=== PATIENT | male | born 1940 | race American Indian/Alaskan Native ===

== ENCOUNTER → 2016-07-11 | Outpatient (CLI) | payer MEDICARE, OTHER | LOC: MW.CHUR 12:59 | PROVIDERS: ATTEND Urology | DX: C61 Malignant neoplasm of prostate (principal); Z85.46 Personal history of malignant neoplasm of prostate | CPT/HCPCS: 36415; 84153 ==

== ENCOUNTER → 2016-07-13 | Outpatient (CLI) | payer MEDICARE, OTHER | LOC: MW.CHUR 08:00 | PROVIDERS: ATTEND Urology | DX: Z85.46 Personal history of malignant neoplasm of prostate (principal) | CPT/HCPCS: G0463 ==

== ENCOUNTER → 2016-08-03 | Outpatient (CLI) | payer MEDICARE, OTHER | LOC: MW.CHUR 09:58 | PROVIDERS: ATTEND Urology | DX: C61 Malignant neoplasm of prostate (principal); R97.8 Other abnormal tumor markers; Z85.46 Personal history of malignant neoplasm of prostate | CPT/HCPCS: 36415; 84153; 96372; G0463; J9217 ==

== ENCOUNTER → 2016-08-12 | Outpatient (CLI) | payer MEDICARE, OTHER ==
--- NOTE | 2016-08-12 14:04 | NM ---
TOTAL-BODY BONE SCAN CLINICAL HISTORY: Prostate cancer TECHNIQUE: The patient was injected with 23.4 mCi of technetium-99m MDP intravenously and returned three hours later for anterior and posterior total-body bone scan. FINDINGS: Numerous small areas of uptake are noted within the lower cervical, thoracic, and lumbar spine. Mult i focal areas of uptake are also noted within the ribs, right aspect of the pelvis, and within the p roximal right femur. The SI joints appear grossly symmetric. Uptake is noted within the kidneys. IMPRESSION: Multiple small uptake within the axial and appendicular skeleton consistent with osseous metastatic disease.
== END ==
LOC: MW.NM 08:54
PROVIDERS: ATTEND Urology
DX: C61 Malignant neoplasm of prostate (principal)
CPT/HCPCS: 78306; A9503

== ENCOUNTER 2020-01-02 11:48 | Inpatient (IN) | payer MEDICARE, OTHER ==
[2020-01-02] MEDS ORDERED: Sodium Chloride 0.9% 10 ML Syringe FLUSH PRN (11:56)
[2020-01-02] MEDS ORDERED: Sodium Chloride 0.9% 2.5 ML Syringe FLUSH PRN ×2 (11:56)
--- NOTE | 2020-01-02 12:45 | EDM.PDOC ---
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 Past medical history: As per history of present illness and as reviewed below otherwise noncontributory. Surgical history: As per history of present illness and as reviewed below otherwise noncontributory. Social history: No reported history of drug or alcohol abuse. Family history: As per history of present illness and as reviewed below otherwise noncontributory. Physical exam: HEENT: Atraumatic, normocephalic, pupils reactive, negative for conjunctival pallor or scleral icterus, mucous membranes moist, throat clear, neck supple, nontender, trachea midline. Lungs: Clear to auscultation, breath sounds equal bilaterally, chest nontender. Heart: S1S2, regular, negative for clicks, rubs, or JVD. Abdomen: Soft, nondistended, nontender. Negative for masses or hepatosplenomegaly. Negative for costovertebral tenderness. Pelvis: Stable nontender. Genitourinary: Deferred. Rectal: Deferred. Extremities: Atraumatic, negative for cords or calf pain. Neurovascular unremarkable. Neuro: Awake, alert, oriented. Cranial nerves II through XII unremarkable. Cerebellum unremarkable. Motor and sensory unremarkable throughout. Exam nonfocal. Diagnostics: [] Therapeutics: [] Impression: [] Plan: Patient will be evaluated for heart failure and COVID. He will be reassessed [] Definitive disposition and diagnosis as appropriate pending reevaluation and review of above. - Related Data Allergies Allergy/AdvReac Type Severity Reaction Status Date / Time No Known Allergies Allergy Verified 01/02/20 18:51 Home Meds: Home Meds Aspirin 81 mg PO ASDIRECTED 01/02/20 [History] Calcium Carbonate [Calcium] 01/02/20 [History] Cholecalciferol (Vitamin D3) [Vitamin D] 5,000 unit PO DAILY 01/02/20 [History] Gabapentin [Neurontin] 600 mg PO BID 01/02/20 [History] Omeprazole 40 mg PO BID 01/02/20 [History] Vitamin E 400 unit PO DAILY 01/02/20 [History] traMADol [Ultram] 50 mg PO Q4HR PRN 01/02/20 [History] Enzalutamide [Xtandi] 160 mg PO DAILY 01/03/20 [History] Fenofibrate 54 mg PO DAILY 01/03/20 [History] Ondansetron [Zofran] 8 mg PO Q8HR PRN 01/03/20 [History] Sertraline HCl 50 mg PO DAILY 01/03/20 [History] guaiFENesin [Mucinex] 600 mg PO BEDTIME PRN 01/03/20 [History] dexAMETHasone [Dexamethasone] 6 mg PO DAILY #5 tab 01/06/20 [Rx] Past Medical History Oncologic (Cancer) History: Reports: Prostate - Past Surgical History Male Surgical History: Reports: Prostatectomy Social & Family History - Tobacco Use Tobacco Use Status *Q: Never Tobacco User - Recreational Drug Use Recreational Drug Use: No ED ROS GENERAL - Review of Systems Review Of Systems: See Below ED EXAM, GENERAL - Physical Exam Exam: See Below Course - Vital Signs Text/Narrative:: One-view portable chest read entered by me there is infiltrates in bilateral lower lobes right greater than left is consistent with positive Covid test. I discussed case with Dr. Portillo at 155 he will accept the patient pending available beds. Last Recorded V/S: Last Vital Signs Temp 36.2 C 01/06/20 18:30 Pulse 55 L 01/06/20 18:30 Resp 18 01/06/20 18:30 BP 140/69 01/06/20 18:30 Pulse Ox 96 01/06/20 18:30 - Orders/Labs/Meds Labs: Laboratory Tests 01/02/20 01/02/20 01/02/20 Range/Units 12:10 12:10 12:10 WBC 6.59 (4.0-11.0) K/uL RBC 3.10 L (4.50-5.90) M/uL Hgb 8.9 L (13.0-17.0) g/dL Hct 29.1 L (38.0-50.0) % MCV 93.9 (80.0-98.0) fL MCH 28.7 (27.0-32.0) pg MCHC 30.6 L (31.0-37.0) g/dL RDW Std Deviation 67.4 H (28.0-62.0) fl RDW Coeff of Oscar 20 H (11.0-15.0) % Plt Count 221 (150-400) K/uL MPV 8.30 (7.40-12.00) fL Add Manual Diff YES Neutrophils % (Manual) 80 (48.0-80.0) % Band Neutrophils % 9 % Lymphocytes % (Manual) 4 L (16.0-40.0) % Monocytes % (Manual) 7 (0.0-15.0) % Nucleated RBC % 0.3 /100WBC Absolute Seg Neuts 5.3 (1.4-5.7) Band Neutrophils # 0.6 Lymphocytes # (Manual) 0.3 L (0.6-2.4) Monocytes # (Manual) 0.5 (0.0-0.8) Nucleated RBCs # 0 K/uL Sodium 137 (136-148) mmol/L Potassium 3.6 (3.5-5.1) mmol/L Chloride 102 (98-107) mmol/L Carbon Dioxide 30.8 (21.0-32.0) mmol/L BUN 13 (7.0-18.0) mg/dL Creatinine 1.1 (0.8-1.3) mg/dL Est Cr Clr Drug Dosing 55.30 mL/min Estimated GFR (MDRD) > 60.0 ml/min Glucose 98 (74-106) mg/dL Calcium 8.6 (8.5-10.1) mg/dL Total Bilirubin 0.6 (0.2-1.0) mg/dL AST 35 (15-37) IU/L ALT 30 (14-63) IU/L Alkaline Phosphatase 69 (46-116) U/L Troponin I < 0.050 (0.000-0.056) ng/mL B-Natriuretic Peptide 206 H (<100) PG/ML Total Protein 6.0 L (6.4-8.2) g/dL Albumin 3.0 L (3.4-5.0) g/dL Globulin 3.0 (2.6-4.0) g/dL Albumin/Globulin Ratio 1.0 (0.9-1.6) SARS-CoV-2 RNA (KP) (NEGATIVE) 01/02/20 Range/Units 12:52 WBC (4.0-11.0) K/uL RBC (4.50-5.90) M/uL Hgb (13.0-17.0) g/dL Hct (38.0-50.0) % MCV (80.0-98.0) fL MCH (27.0-32.0) pg MCHC (31.0-37.0) g/dL RDW Std Deviation (28.0-62.0) fl RDW Coeff of Oscar (11.0-15.0) % Plt Count (150-400) K/uL MPV (7.40-12.00) fL Add Manual Diff Neutrophils % (Manual) (48.0-80.0) % Band Neutrophils % % Lymphocytes % (Manual) (16.0-40.0) % Monocytes % (Manual) (0.0-15.0) % Nucleated RBC % /100WBC Absolute Seg Neuts (1.4-5.7) Band Neutrophils # Lymphocytes # (Manual) (0.6-2.4) Monocytes # (Manual) (0.0-0.8) Nucleated RBCs # K/uL Sodium (136-148) mmol/L Potassium (3.5-5.1) mmol/L Chloride (98-107) mmol/L Carbon Dioxide (21.0-32.0) mmol/L BUN (7.0-18.0) mg/dL Creatinine (0.8-1.3) mg/dL Est Cr Clr Drug Dosing mL/min Estimated GFR (MDRD) ml/min Glucose (74-106) mg/dL Calcium (8.5-10.1) mg/dL Total Bilirubin (0.2-1.0) mg/dL AST (15-37) IU/L ALT (14-63) IU/L Alkaline Phosphatase (46-116) U/L Troponin I (0.000-0.056) ng/mL B-Natriuretic Peptide (<100) PG/ML Total Protein (6.4-8.2) g/dL Albumin (3.4-5.0) g/dL Globulin (2.6-4.0) g/dL Albumin/Globulin Ratio (0.9-1.6) SARS-CoV-2 RNA (KP) POSITIVE H (NEGATIVE) Meds: Medications Discontinued Medications Generic Name Dose Route Start Last Admin Trade Name Freq PRN Reason Stop Dose Admin Acetaminophen 650 mg 01/02/20 16:28 Tylenol PO Q4H PRN Pain (Mild 1-3)/fever Albuterol/Ipratropium 0 gm 01/02/20 23:52 01/06/20 03:54 Combivent Respimat INH 1 puff Q4H PRN Administration Dyspnea Dexamethasone 6 mg 01/02/20 16:30 01/06/20 08:47 Dexamethasone PO 6 mg DAILY IGNACIO Administration Enoxaparin Sodium 40 mg 01/02/20 16:30 01/06/20 18:13 Lovenox SUBCUT 40 mg Q24H IGNACIO Administration Gabapentin 600 mg 01/02/20 22:00 01/06/20 08:48 Neurontin PO 600 mg BID IGNACIO Administration Remdesivir 100 mg/ Sodium 100 mls @ 100 mls/hr 01/03/20 16:30 01/06/20 17:06 Chloride IV 01/06/20 17:30 100 mls/hr Q24H IGNACIO Administration Remdesivir 200 mg/ Sodium 250 mls @ 250 mls/hr 01/02/20 16:25 01/02/20 17:35 Chloride IV 01/02/20 16:26 250 mls/hr ONETIME ONE Administration Influenza Virus Vaccine 1 each 01/03/20 18:00 Pharmacy To Dose - Influenza Vaccine IM 01/03/20 18:01 ONETIME ONE Influenza Virus Vaccine 240 mcg 01/03/20 09:00 Fluzone High-Dose Quad 2020-21 IM 01/03/20 09:01 .ONCE ONE Influenza Virus Vaccine 240 mcg 01/06/20 11:57 01/06/20 13:53 Fluzone High-Dose Quad 2020-21 IM 01/06/20 11:58 240 mcg .ONCE ONE Administration Omeprazole 40 mg 01/03/20 09:00 01/05/20 06:57 Omeprazole PO 40 mg BID IGNACIO Administration Omeprazole 40 mg 01/04/20 17:00 01/06/20 18:13 Omeprazole PO 40 mg BIDAC IGNACIO Administration Ondansetron HCl 4 mg 01/02/20 16:28 Zofran Odt PO Q4H PRN nausea, able to take PO Sertraline HCl 50 mg 01/03/20 21:00 01/05/20 20:11 Zoloft PO 50 mg BEDTIME IGNACIO Administration Sodium Chloride 10 ml 01/02/20 11:56 01/02/20 12:12 Saline Flush FLUSH 10 ml ASDIRECTED PRN Administration Keep Vein Open Sodium Chloride 2.5 ml 01/02/20 11:56 01/02/20 12:13 Saline Flush FLUSH 2.5 ml ASDIRECTED PRN Administration Keep Vein Open Sodium Chloride 2.5 ml 01/02/20 11:56 01/02/20 12:13 Saline Flush FLUSH 2.5 ml ASDIRECTED PRN Administration Keep Vein Open Tramadol HCl 50 mg 01/02/20 21:13 01/05/20 20:59 Ultram PO 50 mg Q6H PRN Administration Pain Departure - Departure Time of Disposition: 13:56 Disposition: Admitted As Inpatient 65 Condition: Good Clinical Impression: COVID-19 - Discharge Information Sepsis Event Note (ED) - Evaluation Sepsis Screening Result: No Definite Risk EKG INTERPRETATION EKG Interpretation Comments: EKG is normal sinus rhythm rate [address]-T changes multiple unifocal PVCs nonspecific conduction delay the T waves are flipped into 3 and aVF read and interpreted by me. This EKG when compared to 1 in January 2019 is markedly changed.
[2020-01-02 12:46] LABS: BLOOD UREA NITROGEN,BUN 13 mg/dL (7.0-18.0); CARBON DIOXIDE,CO2 30.8 mmol/L (21.0-32.0); CHLORIDE,CL 102 mmol/L (98-107); GLUCOSE RANDOM 98 mg/dL (74-106); POTASSIUM,K 3.6 mmol/L (3.5-5.1); SODIUM,NA 137 mmol/L (136-148)
--- NOTE | 2020-01-02 13:25 | CR ---
INDICATION: Dyspnea COMPARISON: None TECHNIQUE: Single-view chest radiograph FINDINGS: TUBES AND LINES: None. HEART AND MEDIASTINUM: Heart size top normal.. LUNGS AND PLEURAL SPACES: Airspace disease diffusely on the right with john consolidation in the right midlung and right base. Similar finding on the left but of lesser severity.No visible pneumothorax. Possible small right effusion. OSSEOUS STRUCTURES: Diffuse osteosclerosis consistent with osseous metastatic disease probably a prostate origin. IMPRESSION: 1. Bilateral airspace disease, right greater than left. This is likely related to pneumonia, including viral pneumonia. 2. Diffuse osteo sclerotic bone disease likely related to diffuse osteosclerotic prostate metastasis. 3. Metastatic disease to the lungs is possible but the pattern is most suggestive of pneumonia. Dictated by Vance Stephens MD @ Jan 02 2020 1:21PM Signed by Dr. Vance Stephens @ Jan 02 2020 1:24PM
[2020-01-02] MEDS ORDERED: Acetaminophen 325 MG Tab PO PRN (16:28)
[2020-01-02] MEDS ORDERED: Ondansetron 4 MG Tab.DIS PO PRN (16:28)
--- NOTE | 2020-01-02 16:36 | PCM.HP.2 ---
H&P History of Present Illness - General Date of Service: 01/02/20 Admit Problem/Dx: Admission Diagnosis/Problem Admission Diagnosis/Problem Hypoxia - History of Present Illness Initial Comments - Free Text/Narative: 79 yo male with pmh of metastatic prostate cancer who was found to be hypoxic during his oncology clinic visit. He was sent to the ED for evaluation. He denies any fevers, chills, diarrhea, headache, nausea, vomiting, or shortness of breath. He does have nonproductive cough. CXR showed bilateral lung opacities. - Related Data Allergies/Adverse Reactions: Allergies Allergy/AdvReac Type Severity Reaction Status Date / Time No Known Allergies Allergy Verified 01/02/20 18:51 Home Medications: Home Meds Aspirin 81 mg PO ASDIRECTED 01/02/20 [History] Calcium Carbonate [Calcium] 01/02/20 [History] Cholecalciferol (Vitamin D3) [Vitamin D] 5,000 unit PO DAILY 01/02/20 [History] Gabapentin [Neurontin] 600 mg PO BID 01/02/20 [History] Omeprazole 40 mg PO BID 01/02/20 [History] Vitamin E 400 unit PO DAILY 01/02/20 [History] traMADol [Ultram] 50 mg PO Q4HR PRN 01/02/20 [History] Enzalutamide [Xtandi] 160 mg PO DAILY 01/03/20 [History] Fenofibrate 54 mg PO DAILY 01/03/20 [History] Ondansetron [Zofran] 8 mg PO Q8HR PRN 01/03/20 [History] Sertraline HCl 50 mg PO DAILY 01/03/20 [History] guaiFENesin [Mucinex] 600 mg PO BEDTIME PRN 01/03/20 [History] Past Medical History Oncologic (Cancer) History: Reports: Prostate - Past Surgical History Male Surgical History: Reports: Prostatectomy Social & Family History - Tobacco Use Smoking Status *Q: Never Smoker - Recreational Drug Use Recreational Drug Use: No H&P Review of Systems - Review of Systems: Review Of Systems: Comprehensive ROS is negative, except as noted in HPI. Exam - Exam Exam: See Below - Vital Signs Vital Signs: Last Vital Signs Temp 36.6 C 01/02/20 12:45 Pulse 63 01/02/20 14:15 Resp 20 01/02/20 12:57 BP 124/61 01/02/20 14:15 Pulse Ox 99 01/02/20 14:15 Weight: 96.615 kg - Exam General: Alert, Oriented HEENT: Mucosa Moist & [place]ck: Supple Lungs: Clear to Auscultation, Normal Respiratory Effort Cardiovascular: Regular Rate, Regular Rhythm GI/Abdominal Exam: Normal Bowel Sounds, Soft, Non-Tender, No Distention Extremities: Non-Tender, No Pedal Edema Skin: Warm, Dry, Intact Neurological: Cranial Nerves Intact. No: Focal Deficit - Patient Data Lab Results Last 24 hrs: Laboratory Results - last 24 hr 01/02/20 01/02/20 01/02/20 Range/Units 12:10 12:10 12:10 WBC 6.59 (4.0-11.0) K/uL RBC 3.10 L (4.50-5.90) M/uL Hgb 8.9 L (13.0-17.0) g/dL Hct 29.1 L (38.0-50.0) % MCV 93.9 (80.0-98.0) fL MCH 28.7 (27.0-32.0) pg MCHC 30.6 L (31.0-37.0) g/dL RDW Std Deviation 67.4 H (28.0-62.0) fl RDW Coeff of Oscar 20 H (11.0-15.0) % Plt Count 221 (150-400) K/uL MPV 8.30 (7.40-12.00) fL Add Manual Diff YES Neutrophils % (Manual) 80 (48.0-80.0) % Band Neutrophils % 9 % Lymphocytes % (Manual) 4 L (16.0-40.0) % Monocytes % (Manual) 7 (0.0-15.0) % Nucleated RBC % 0.3 /100WBC Absolute Seg Neuts 5.3 (1.4-5.7) Band Neutrophils # 0.6 Lymphocytes # (Manual) 0.3 L (0.6-2.4) Monocytes # (Manual) 0.5 (0.0-0.8) Nucleated RBCs # 0 K/uL Sodium 137 (136-148) mmol/L Potassium 3.6 (3.5-5.1) mmol/L Chloride 102 (98-107) mmol/L Carbon Dioxide 30.8 (21.0-32.0) mmol/L BUN 13 (7.0-18.0) mg/dL Creatinine 1.1 (0.8-1.3) mg/dL Est Cr Clr Drug Dosing 55.30 mL/min Estimated GFR (MDRD) > 60.0 ml/min Glucose 98 (74-106) mg/dL Calcium 8.6 (8.5-10.1) mg/dL Total Bilirubin 0.6 (0.2-1.0) mg/dL AST 35 (15-37) IU/L ALT 30 (14-63) IU/L Alkaline Phosphatase 69 (46-116) U/L Troponin I < 0.050 (0.000-0.056) ng/mL B-Natriuretic Peptide 206 H (<100) PG/ML Total Protein 6.0 L (6.4-8.2) g/dL Albumin 3.0 L (3.4-5.0) g/dL Globulin 3.0 (2.6-4.0) g/dL Albumin/Globulin Ratio 1.0 (0.9-1.6) SARS-CoV-2 RNA (KP) (NEGATIVE) 01/02/20 Range/Units 12:52 WBC (4.0-11.0) K/uL RBC (4.50-5.90) M/uL Hgb (13.0-17.0) g/dL Hct (38.0-50.0) % MCV (80.0-98.0) fL MCH (27.0-32.0) pg MCHC (31.0-37.0) g/dL RDW Std Deviation (28.0-62.0) fl RDW Coeff of Oscar (11.0-15.0) % Plt Count (150-400) K/uL MPV (7.40-12.00) fL Add Manual Diff Neutrophils % (Manual) (48.0-80.0) % Band Neutrophils % % Lymphocytes % (Manual) (16.0-40.0) % Monocytes % (Manual) (0.0-15.0) % Nucleated RBC % /100WBC Absolute Seg Neuts (1.4-5.7) Band Neutrophils # Lymphocytes # (Manual) (0.6-2.4) Monocytes # (Manual) (0.0-0.8) Nucleated RBCs # K/uL Sodium (136-148) mmol/L Potassium (3.5-5.1) mmol/L Chloride (98-107) mmol/L Carbon Dioxide (21.0-32.0) mmol/L BUN (7.0-18.0) mg/dL Creatinine (0.8-1.3) mg/dL Est Cr Clr Drug Dosing mL/min Estimated GFR (MDRD) ml/min Glucose (74-106) mg/dL Calcium (8.5-10.1) mg/dL Total Bilirubin (0.2-1.0) mg/dL AST (15-37) IU/L ALT (14-63) IU/L Alkaline Phosphatase (46-116) U/L Troponin I (0.000-0.056) ng/mL B-Natriuretic Peptide (<100) PG/ML Total Protein (6.4-8.2) g/dL Albumin (3.4-5.0) g/dL Globulin (2.6-4.0) g/dL Albumin/Globulin Ratio (0.9-1.6) SARS-CoV-2 RNA (KP) POSITIVE H (NEGATIVE) Result Diagrams: 01/03/20 05:45 01/03/20 05:45 Sepsis Event Note - Evaluation Sepsis Screening Result: No Definite Risk - Focused Exam Vital Signs: Vital Signs Temp Pulse Resp BP Pulse Ox 01/02/20 14:15 63 124/61 99 01/02/20 13:45 58 L 125/57 L 99 01/02/20 12:57 59 L 20 121/55 L 95 01/02/20 12:45 36.6 C 59 L 20 128/62 94 L 01/02/20 12:15 36.6 C 68 21 H 135/66 89 L 01/02/20 11:55 36.6 C 53 L 20 135/68 98 Problem List Initiated/Reviewed/Updated: Yes Orders Last 24hrs: Active Orders 24 hr Category Date Time Status Patient Status [ADT] Routine ADT 01/02/20 14:07 Active Antiembolic Devices [RC] PER UNIT ROUTINE Care 01/02/20 16:29 Ordered EKG Documentation Completion [RC] STAT Care 01/02/20 11:56 Active Oxygen Therapy [RC] PRN Care 01/02/20 16:28 Ordered Up ad Maude [RC] ASDIRECTED Care 01/02/20 16:28 Ordered VTE/DVT Education [RC] PER UNIT ROUTINE Care 01/02/20 16:28 Ordered Vital Signs [RC] Q4H Care 01/02/20 16:28 Ordered [place] [employer] Diet [DIET] Diet 01/02/20 Breakfast Ordered CBC WITH AUTO DIFF [HEME] AM Lab 01/03/20 05:11 Ordered CBC WITH AUTO DIFF [HEME] AM Lab 01/04/20 05:11 Ordered CBC WITH AUTO DIFF [HEME] AM Lab 01/05/20 05:11 Ordered COMPREHENSIVE METABOLIC PN,CMP [CHEM] AM Lab 01/03/20 05:11 Ordered COMPREHENSIVE METABOLIC PN,CMP [CHEM] AM Lab 01/04/20 05:11 Ordered COMPREHENSIVE METABOLIC PN,CMP [CHEM] AM Lab 01/05/20 05:11 Ordered Acetaminophen [TylenoL] Med 01/02/20 16:28 Ordered 650 mg PO Q4H PRN Enoxaparin [Lovenox] Med 01/02/20 16:30 Ordered 40 mg SUBCUT Q24H Ondansetron [Zofran ODT] Med 01/02/20 16:28 Ordered 4 mg PO Q4H PRN Remdesivir (Eua) [Remdesivir (EUA)] 100 mg Med 01/03/20 16:30 Ordered Sodium Chloride 0.9% [Normal Saline] 100 ml IV Q24H Sodium Chloride 0.9% [Saline Flush] Med 01/02/20 11:56 Active 10 ml FLUSH ASDIRECTED PRN Sodium Chloride 0.9% [Saline Flush] Med 01/02/20 11:56 Active 2.5 ml FLUSH ASDIRECTED PRN Sodium Chloride 0.9% [Saline Flush] Med 01/02/20 11:56 Active 2.5 ml FLUSH ASDIRECTED PRN dexAMETHasone Med 01/02/20 16:30 Ordered 6 mg PO DAILY Saline Lock Insert [OM.PC] Stat Oth 01/02/20 11:56 Ordered Sequential Compression Device [OM.PC] Per Unit Routine Oth 01/02/20 16:28 Ordered Resuscitation Status Routine Resus Stat 01/02/20 16:28 Ordered Medication Orders Acetaminophen (Tylenol) 650 mg PO Q4H PRN PRN Reason: Pain (Mild 1-3)/fever Dexamethasone (Dexamethasone) 6 mg PO DAILY IGNACIO Enoxaparin Sodium (Lovenox) 40 mg SUBCUT Q24H IGNACIO Remdesivir 100 mg/ Sodium (Chloride) 100 mls @ 100 mls/hr IV Q24H IGNACIO Ondansetron HCl (Zofran Odt) 4 mg PO Q4H PRN PRN Reason: nausea, able to take PO Sodium Chloride (Saline Flush) 10 ml FLUSH ASDIRECTED PRN PRN Reason: Keep Vein Open Last Admin: 01/02/20 12:12 Dose: 10 ml Documented by: MICHELLE Sodium Chloride (Saline Flush) 2.5 ml FLUSH ASDIRECTED PRN PRN Reason: Keep Vein Open Last Admin: 01/02/20 12:13 Dose: 2.5 ml Documented by: MICHELLE Sodium Chloride (Saline Flush) 2.5 ml FLUSH ASDIRECTED PRN PRN Reason: Keep Vein Open Last Admin: 01/02/20 12:13 Dose: 2.5 ml Documented by: MICHELLE Assessment/Plan Comment:: 79 yo male admitted for Acute hypoxic respiratory failure from COVID-19 COVID-19: requiring 2 liters [place] supplemental oxygen. Patient was given fact sheet on Remdesivir and explained its FDA EUA. The risks and benefits were explained and patient consented to its use. Will start Remdesivir, dexamethasone and prophylactic lovenox.
[2020-01-02] MEDS: Dexamethasone 4 MG Tab PO SCH (17:01)
[2020-01-02] MEDS: Enoxaparin 40 MG/0.4 ML Syringe SUBCUT SCH (17:03)
[2020-01-02] MEDS: Gabapentin 300 MG Cap PO SCH (22:22)
[2020-01-03] MEDS: Albuterol/Ipratropium 4 GM Inhalation Spray INH PRN ×3 (00:41→16:14)
[2020-01-03 06:35] LABS: BLOOD UREA NITROGEN,BUN 16 mg/dL (7.0-18.0); CARBON DIOXIDE,CO2 26.9 mmol/L (21.0-32.0); CHLORIDE,CL 102 mmol/L (98-107); GLUCOSE RANDOM 132 mg/dL (74-106); POTASSIUM,K 4.1 mmol/L (3.5-5.1); SODIUM,NA 138 mmol/L (136-148)
[2020-01-03] MEDS ORDERED: FLU Vacc QV2020-21(65YR UP)/PF 240 MCG/0.7 ML Syringe IM ONE (09:00)
[2020-01-03] MEDS: Dexamethasone 4 MG Tab PO SCH (09:20)
[2020-01-03] MEDS: Gabapentin 300 MG Cap PO SCH ×2 (09:21→20:42)
[2020-01-03] MEDS: Omeprazole 20 MG Cap.CR PO SCH ×2 (09:21→20:41)
[2020-01-03] MEDS: traMADol 50 MG Tab PO PRN (12:50)
--- NOTE | 2020-01-03 13:03 | PCM.PN ---
- General Info Date of Service: 01/03/20 - Review of Systems Systems Review Comment:: feeling better, no shortness of breath, reports cough - Patient Data Vitals - Most Recent: Last Vital Signs Temp 36.3 C 01/03/20 12:46 Pulse 69 01/03/20 12:46 Resp 18 01/03/20 12:46 BP 144/81 H 01/03/20 12:46 Pulse Ox 92 L 01/03/20 12:46 Weight - Most Recent: 96.615 kg I&O - Last 24 Hours: Intake & Output 01/02/20 01/03/20 01/03/20 22:59 06:59 14:59 Intake Total 600 Output Total 550 Balance 50 Lab Results Last 24 Hours: Laboratory Results - last 24 hr 01/02/20 01/02/20 01/02/20 Range/Units 12:10 12:10 12:52 WBC 6.59 (4.0-11.0) K/uL RBC 3.10 L (4.50-5.90) M/uL Hgb 8.9 L (13.0-17.0) g/dL Hct 29.1 L (38.0-50.0) % MCV 93.9 (80.0-98.0) fL MCH 28.7 (27.0-32.0) pg MCHC 30.6 L (31.0-37.0) g/dL RDW Std Deviation 67.4 H (28.0-62.0) fl RDW Coeff of Oscar 20 H (11.0-15.0) % Plt Count 221 (150-400) K/uL MPV 8.30 (7.40-12.00) fL Neut % (Auto) (48.0-80.0) % Lymph % (Auto) (16.0-40.0) % [place] % (Auto) (0.0-15.0) % Eos % (Auto) (0.0-7.0) % Baso % (Auto) (0.0-1.5) % Neut # (Auto) (1.4-5.7) K/uL Lymph # (Auto) (0.6-2.4) K/uL [place] # (Auto) (0.0-0.8) K/uL Eos # (Auto) (0.0-0.7) K/uL Baso # (Auto) (0.0-0.1) K/uL Add Manual Diff YES Neutrophils % (Manual) 80 (48.0-80.0) % Band Neutrophils % 9 % Lymphocytes % (Manual) 4 L (16.0-40.0) % Monocytes % (Manual) 7 (0.0-15.0) % Nucleated RBC % 0.3 /100WBC Absolute Seg Neuts 5.3 (1.4-5.7) Band Neutrophils # 0.6 Lymphocytes # (Manual) 0.3 L (0.6-2.4) Monocytes # (Manual) 0.5 (0.0-0.8) Nucleated RBCs # 0 K/uL Sodium (136-148) mmol/L Potassium (3.5-5.1) mmol/L Chloride (98-107) mmol/L Carbon Dioxide (21.0-32.0) mmol/L BUN (7.0-18.0) mg/dL Creatinine (0.8-1.3) mg/dL Est Cr Clr Drug Dosing mL/min Estimated GFR (MDRD) ml/min Glucose (74-106) mg/dL Calcium (8.5-10.1) mg/dL Total Bilirubin (0.2-1.0) mg/dL AST (15-37) IU/L ALT (14-63) IU/L Alkaline Phosphatase (46-116) U/L B-Natriuretic Peptide 206 H (<100) PG/ML Total Protein (6.4-8.2) g/dL Albumin (3.4-5.0) g/dL Globulin (2.6-4.0) g/dL Albumin/Globulin Ratio (0.9-1.6) SARS-CoV-2 RNA (KP) POSITIVE H (NEGATIVE) 01/03/20 01/03/20 Range/Units 05:45 05:45 WBC 5.83 (4.0-11.0) K/uL RBC 3.21 L (4.50-5.90) M/uL Hgb 9.2 L (13.0-17.0) g/dL Hct 30.2 L (38.0-50.0) % MCV 94.1 (80.0-98.0) fL MCH 28.7 (27.0-32.0) pg MCHC 30.5 L (31.0-37.0) g/dL RDW Std Deviation 67.6 H (28.0-62.0) fl RDW Coeff of Oscar 20 H (11.0-15.0) % Plt Count 238 (150-400) K/uL MPV 8.20 (7.40-12.00) fL Neut % (Auto) 81.6 H (48.0-80.0) % Lymph % (Auto) 9.6 L (16.0-40.0) % [place] % (Auto) 8.6 (0.0-15.0) % Eos % (Auto) 0.2 (0.0-7.0) % Baso % (Auto) 0.0 (0.0-1.5) % Neut # (Auto) 4.8 (1.4-5.7) K/uL Lymph # (Auto) 0.6 (0.6-2.4) K/uL [place] # (Auto) 0.5 (0.0-0.8) K/uL Eos # (Auto) 0.0 (0.0-0.7) K/uL Baso # (Auto) 0.0 (0.0-0.1) K/uL Add Manual Diff Neutrophils % (Manual) (48.0-80.0) % Band Neutrophils % % Lymphocytes % (Manual) (16.0-40.0) % Monocytes % (Manual) (0.0-15.0) % Nucleated RBC % 0.0 /100WBC Absolute Seg Neuts (1.4-5.7) Band Neutrophils # Lymphocytes # (Manual) (0.6-2.4) Monocytes # (Manual) (0.0-0.8) Nucleated RBCs # 0 K/uL Sodium 138 (136-148) mmol/L Potassium 4.1 (3.5-5.1) mmol/L Chloride 102 (98-107) mmol/L Carbon Dioxide 26.9 (21.0-32.0) mmol/L BUN 16 (7.0-18.0) mg/dL Creatinine 1.0 (0.8-1.3) mg/dL Est Cr Clr Drug Dosing 60.83 mL/min Estimated GFR (MDRD) > 60.0 ml/min Glucose 132 H (74-106) mg/dL Calcium 8.1 L (8.5-10.1) mg/dL Total Bilirubin 0.5 (0.2-1.0) mg/dL AST 30 (15-37) IU/L ALT 32 (14-63) IU/L Alkaline Phosphatase 72 (46-116) U/L B-Natriuretic Peptide (<100) PG/ML Total Protein 6.1 L (6.4-8.2) g/dL Albumin 2.9 L (3.4-5.0) g/dL Globulin 3.2 (2.6-4.0) g/dL Albumin/Globulin Ratio 0.9 (0.9-1.6) SARS-CoV-2 RNA (KP) (NEGATIVE) Med Orders - Current: Current Medications Acetaminophen (Tylenol) 650 mg PO Q4H PRN PRN Reason: Pain (Mild 1-3)/fever Albuterol/Ipratropium (Combivent Respimat) 0 gm INH Q4H PRN PRN Reason: Dyspnea Last Admin: 01/03/20 05:24 Dose: 1 puff Documented by: Dexamethasone (Dexamethasone) 6 mg PO DAILY [facility] Last Admin: 01/03/20 09:20 Dose: 6 mg Documented by: Enoxaparin Sodium (Lovenox) 40 mg SUBCUT Q24H [facility] Last Admin: 01/02/20 17:03 Dose: 40 mg Documented by: Gabapentin (Neurontin) 600 mg PO BID [facility] Last Admin: 01/03/20 09:21 Dose: 600 mg Documented by: Remdesivir 100 mg/ Sodium (Chloride) 100 mls @ 100 mls/hr IV Q24H [facility] Omeprazole (Omeprazole) 40 mg PO BID [facility] Last Admin: 01/03/20 09:21 Dose: 40 mg Documented by: Ondansetron HCl (Zofran Odt) 4 mg PO Q4H PRN PRN Reason: nausea, able to take PO Sertraline HCl (Zoloft) 50 mg PO BEDTIME [facility] Sodium Chloride (Saline Flush) 10 ml FLUSH ASDIRECTED PRN PRN Reason: Keep Vein Open Last Admin: 01/02/20 12:12 Dose: 10 ml Documented by: Sodium Chloride (Saline Flush) 2.5 ml FLUSH ASDIRECTED PRN PRN Reason: Keep Vein Open Last Admin: 01/02/20 12:13 Dose: 2.5 ml Documented by: Sodium Chloride (Saline Flush) 2.5 ml FLUSH ASDIRECTED PRN PRN Reason: Keep Vein Open Last Admin: 01/02/20 12:13 Dose: 2.5 ml Documented by: Tramadol HCl (Ultram) 50 mg PO Q6H PRN PRN Reason: Pain Last Admin: 01/03/20 12:50 Dose: 50 mg Documented by: Discontinued Medications Remdesivir 200 mg/ Sodium (Chloride) 250 mls @ 250 mls/hr IV ONETIME ONE Stop: 01/02/20 16:26 Last Admin: 01/02/20 17:35 Dose: 250 mls/hr Documented by: Influenza Virus Vaccine (Pharmacy To Dose - Influenza Vaccine) 1 each IM ONETIME ONE Stop: 01/03/20 18:01 Influenza Virus Vaccine (Fluzone High-Dose Quad 2019-) 240 mcg IM .ONCE ONE Stop: 01/03/20 09:01 - Exam General: Alert, Oriented Neck: Supple Lungs: Clear to Auscultation, Normal Respiratory Effort Cardiovascular: Regular Rate, Regular Rhythm GI/Abdominal Exam: Normal Bowel Sounds, Soft, Non-Tender Extremities: Non-Tender, No Pedal Edema Skin: Warm, Dry, Intact Neurological: No New Focal Deficit Sepsis Event Note - Evaluation Sepsis Screening Result: No Definite Risk - Focused Exam Vital Signs: Vital Signs Temp Pulse Resp BP Pulse Ox 01/03/20 12:46 36.3 C 69 18 144/81 H 92 L 01/03/20 09:22 92 L 01/03/20 09:03 36.2 C 65 20 147/75 H 90 L 01/03/20 03:34 36.4 C 53 L 18 132/68 95 - Problem List Review Problem List Initiated/Reviewed/Updated: Yes - My Orders Last 24 Hours: My Active Orders 01/02/20 16:28 Oxygen Therapy [RC] PRN Up ad Maude [RC] ASDIRECTED VTE/DVT Education [RC] PER UNIT ROUTINE Vital Signs [RC] Q4H Acetaminophen [TylenoL] 650 mg PO Q4H PRN Ondansetron [Zofran ODT] 4 mg PO Q4H PRN Sequential Compression Device [OM.PC] Per Unit Routine Resuscitation Status Routine 01/02/20 16:29 Antiembolic Devices [RC] PER UNIT ROUTINE 01/02/20 16:30 Enoxaparin [Lovenox] 40 mg SUBCUT Q24H dexAMETHasone 6 mg PO DAILY 01/02/20 16:55 Telemetry Monitoring [Cardiac Monitoring] [RC] Q8H 01/02/20 18:22 Influenza Vaccine Charge [RC] .DISCHARGE 01/02/20 21:13 traMADol [Ultram] 50 mg PO Q6H PRN 01/02/20 22:00 Gabapentin [Neurontin] 600 mg PO BID 01/02/20 23:52 Albuterol/Ipratropium [Combivent Respimat] 0 gm INH Q4H PRN 01/02/20 23:53 RT Post Treatment Assessment [RC] Click to Edit RT Pre-Treatment Assessment [RC] Click to Edit 01/03/20 09:00 Omeprazole 40 mg PO BID 01/03/20 16:30 Remdesivir (Eua) [Remdesivir (EUA)] 100 mg Sodium Chloride 0.9% [Normal Saline] 100 ml IV Q24H 01/03/20 21:00 Sertraline [Zoloft] 50 mg PO BEDTIME 01/04/20 05:11 CBC WITH AUTO DIFF [HEME] AM COMPREHENSIVE METABOLIC PN,CMP [CHEM] AM 01/05/20 05:11 CBC WITH AUTO DIFF [HEME] AM COMPREHENSIVE METABOLIC PN,CMP [CHEM] AM - Plan Plan:: 79 yo male admitted for Acute hypoxic respiratory failure from COVID-19 COVID-19: requiring 4 liters [place] supplemental oxygen. continue remdesivir, dexamethasone and prophylactic lovenox.
[2020-01-03] MEDS: Enoxaparin 40 MG/0.4 ML Syringe SUBCUT SCH (16:12)
[2020-01-03] MEDS: REMDESIVIR (EUA) 100 MG in Sodium Chloride 0.9% 100 ML IV SCH (16:31)
[2020-01-03] MEDS: Sertraline 50 MG Tab PO SCH (20:41)
[2020-01-04 06:52] LABS: BLOOD UREA NITROGEN,BUN 16 mg/dL (7.0-18.0); CHLORIDE,CL 105 mmol/L (98-107); GLUCOSE RANDOM 115 mg/dL (74-106); POTASSIUM,K 4.1 mmol/L (3.5-5.1); SODIUM,NA 142 mmol/L (136-148)
[2020-01-04] MEDS: Omeprazole 20 MG Cap.CR PO SCH ×2 (09:05→16:18)
[2020-01-04] MEDS: Gabapentin 300 MG Cap PO SCH ×2 (09:05→20:25)
[2020-01-04] MEDS: Dexamethasone 4 MG Tab PO SCH (09:05)
[2020-01-04] MEDS: Albuterol/Ipratropium 4 GM Inhalation Spray INH PRN (12:09)
--- NOTE | 2020-01-04 15:47 | PCM.PN ---
- General Info Date of Service: 01/04/20 - Review of Systems Systems Review Comment:: feeling better, has productive cough - Patient Data Vitals - Most Recent: Last Vital Signs Temp 36.5 C 01/04/20 12:00 Pulse 72 01/04/20 12:00 Resp 18 01/04/20 12:00 BP 133/68 01/04/20 12:00 Pulse Ox 93 L 01/04/20 12:00 Weight - Most Recent: 96.615 kg I&O - Last 24 Hours: Intake & Output 01/04/20 01/04/20 01/04/20 06:59 14:59 22:59 Intake Total 400 Output Total 200 Balance 200 Lab Results Last 24 Hours: Laboratory Results - last 24 hr 01/04/20 01/04/20 Range/Units 05:40 05:40 WBC 4.06 (4.0-11.0) K/uL RBC 3.12 L (4.50-5.90) M/uL Hgb 9.0 L (13.0-17.0) g/dL Hct 29.2 L (38.0-50.0) % MCV 93.6 (80.0-98.0) fL MCH 28.8 (27.0-32.0) pg MCHC 30.8 L (31.0-37.0) g/dL RDW Std Deviation 66.1 H (28.0-62.0) fl RDW Coeff of Oscar 19 H (11.0-15.0) % Plt Count 247 (150-400) K/uL MPV 8.30 (7.40-12.00) fL Neut % (Auto) 79.0 (48.0-80.0) % Lymph % (Auto) 9.4 L (16.0-40.0) % [place] % (Auto) 11.6 (0.0-15.0) % Eos % (Auto) 0.0 (0.0-7.0) % Baso % (Auto) 0.0 (0.0-1.5) % Neut # (Auto) 3.2 (1.4-5.7) K/uL Lymph # (Auto) 0.4 L (0.6-2.4) K/uL [place] # (Auto) 0.5 (0.0-0.8) K/uL Eos # (Auto) 0.0 (0.0-0.7) K/uL Baso # (Auto) 0.0 (0.0-0.1) K/uL Nucleated RBC % 0.5 /100WBC Nucleated RBCs # 0 K/uL Sodium 142 (136-148) mmol/L Potassium 4.1 (3.5-5.1) mmol/L Chloride 105 (98-107) mmol/L Carbon Dioxide 30.0 (21.0-32.0) mmol/L BUN 16 (7.0-18.0) mg/dL Creatinine 0.9 (0.8-1.3) mg/dL Est Cr Clr Drug Dosing 67.59 mL/min Estimated GFR (MDRD) > 60.0 ml/min Glucose 115 H (74-106) mg/dL Calcium 7.8 L (8.5-10.1) mg/dL Total Bilirubin 0.4 (0.2-1.0) mg/dL AST 37 (15-37) IU/L ALT 36 (14-63) IU/L Alkaline Phosphatase 65 (46-116) U/L Total Protein 5.7 L (6.4-8.2) g/dL Albumin 2.8 L (3.4-5.0) g/dL Globulin 2.9 (2.6-4.0) g/dL Albumin/Globulin Ratio 1.0 (0.9-1.6) Med Orders - Current: Current Medications Acetaminophen (Tylenol) 650 mg PO Q4H PRN PRN Reason: Pain (Mild 1-3)/fever Albuterol/Ipratropium (Combivent Respimat) 0 gm INH Q4H PRN PRN Reason: Dyspnea Last Admin: 01/04/20 12:09 Dose: 1 puff Documented by: Dexamethasone (Dexamethasone) 6 mg PO DAILY [facility] Last Admin: 01/04/20 09:05 Dose: 6 mg Documented by: Enoxaparin Sodium (Lovenox) 40 mg SUBCUT Q24H [facility] Last Admin: 01/03/20 16:12 Dose: 40 mg Documented by: Gabapentin (Neurontin) 600 mg PO BID [facility] Last Admin: 01/04/20 09:05 Dose: 600 mg Documented by: Remdesivir 100 mg/ Sodium (Chloride) 100 mls @ 100 mls/hr IV Q24H [facility] Stop: 01/06/20 17:30 Last Admin: 01/03/20 16:31 Dose: 100 mls/hr Documented by: Omeprazole (Omeprazole) 40 mg PO BIDAC [facility] Ondansetron HCl (Zofran Odt) 4 mg PO Q4H PRN PRN Reason: nausea, able to take PO Sertraline HCl (Zoloft) 50 mg PO BEDTIME [facility] Last Admin: 01/03/20 20:41 Dose: 50 mg Documented by: Sodium Chloride (Saline Flush) 10 ml FLUSH ASDIRECTED PRN PRN Reason: Keep Vein Open Last Admin: 01/02/20 12:12 Dose: 10 ml Documented by: Sodium Chloride (Saline Flush) 2.5 ml FLUSH ASDIRECTED PRN PRN Reason: Keep Vein Open Last Admin: 01/02/20 12:13 Dose: 2.5 ml Documented by: Sodium Chloride (Saline Flush) 2.5 ml FLUSH ASDIRECTED PRN PRN Reason: Keep Vein Open Last Admin: 01/02/20 12:13 Dose: 2.5 ml Documented by: Tramadol HCl (Ultram) 50 mg PO Q6H PRN PRN Reason: Pain Last Admin: 01/03/20 12:50 Dose: 50 mg Documented by: Discontinued Medications Remdesivir 200 mg/ Sodium (Chloride) 250 mls @ 250 mls/hr IV ONETIME ONE Stop: 01/02/20 16:26 Last Admin: 01/02/20 17:35 Dose: 250 mls/hr Documented by: Influenza Virus Vaccine (Pharmacy To Dose - Influenza Vaccine) 1 each IM ONETIME ONE Stop: 01/03/20 18:01 Influenza Virus Vaccine (Fluzone High-Dose Quad 2019-) 240 mcg IM .ONCE ONE Stop: 01/03/20 09:01 Omeprazole (Omeprazole) 40 mg PO BID [facility] Last Admin: 01/04/20 09:05 Dose: 40 mg Documented by: - Exam General: Alert, Oriented Lungs: Clear to Auscultation, Normal Respiratory Effort Cardiovascular: Regular Rate, Regular Rhythm GI/Abdominal Exam: Soft, Non-Tender, No Distention Extremities: Non-Tender, No Pedal Edema Sepsis Event Note - Evaluation Sepsis Screening Result: No Definite Risk - Focused Exam Vital Signs: Vital Signs Temp Pulse Resp BP Pulse Ox Pulse Ox 10/10/20 12:00 36.5 C 72 18 133/68 93 L 01/04/20 09:00 92 L 01/04/20 08:00 36.9 C 65 18 118/60 92 L 01/04/20 04:11 36.1 C 109 H 19 116/65 432 H - Problem List Review Problem List Initiated/Reviewed/Updated: Yes - My Orders Last 24 Hours: My Active Orders 01/03/20 16:30 Remdesivir (Eua) [Remdesivir (EUA)] 100 mg Sodium Chloride 0.9% [Normal Saline] 100 ml IV Q24H 01/03/20 21:00 Sertraline [Zoloft] 50 mg PO BEDTIME 01/04/20 17:00 Omeprazole 40 mg PO BIDAC 01/05/20 05:11 CBC WITH AUTO DIFF [HEME] AM COMPREHENSIVE METABOLIC PN,CMP [CHEM] AM - Plan Plan:: 79 yo male admitted for Acute hypoxic respiratory failure from COVID-19 COVID-19: requiring 1.5 liters [place] supplemental oxygen. continue remdesivir, dexamethasone and prophylactic lovenox. Anticipate discharge home Monday
[2020-01-04] MEDS: REMDESIVIR (EUA) 100 MG in Sodium Chloride 0.9% 100 ML IV SCH (16:17)
[2020-01-04] MEDS: Enoxaparin 40 MG/0.4 ML Syringe SUBCUT SCH (16:17)
[2020-01-04] MEDS: Sertraline 50 MG Tab PO SCH (20:26)
[2020-01-05 06:27] LABS: BLOOD UREA NITROGEN,BUN 17 mg/dL (7.0-18.0); CARBON DIOXIDE,CO2 27.6 mmol/L (21.0-32.0); CHLORIDE,CL 105 mmol/L (98-107); GLUCOSE RANDOM 86 mg/dL (74-106); POTASSIUM,K 3.6 mmol/L (3.5-5.1); SODIUM,NA 141 mmol/L (136-148)
[2020-01-05] MEDS: Omeprazole 20 MG Cap.CR PO SCH ×3 (06:57→16:16)
[2020-01-05] MEDS: Albuterol/Ipratropium 4 GM Inhalation Spray INH PRN ×3 (06:58→20:16)
[2020-01-05] MEDS: Gabapentin 300 MG Cap PO SCH ×2 (08:25→20:11)
[2020-01-05] MEDS: Dexamethasone 4 MG Tab PO SCH (08:25)
--- NOTE | 2020-01-05 12:15 | PCM.PN ---
- General Info Date of Service: 01/05/20 - Review of Systems Systems Review Comment:: reports cough, no shortness of breath - Patient Data Vitals - Most Recent: Last Vital Signs Temp 36.8 C 01/05/20 08:00 Pulse 68 01/05/20 08:00 Resp 19 01/05/20 08:00 BP 132/68 01/05/20 08:00 Pulse Ox 90 L 01/05/20 09:00 Weight - Most Recent: 96.615 kg I&O - Last 24 Hours: Intake & Output 01/04/20 01/05/20 01/05/20 22:59 06:59 14:59 Intake Total 860 300 Output Total 750 350 Balance 110 -50 Lab Results Last 24 Hours: Laboratory Results - last 24 hr 01/05/20 01/05/20 Range/Units 05:50 05:50 WBC 8.16 (4.0-11.0) K/uL RBC 3.26 L (4.50-5.90) M/uL Hgb 9.2 L (13.0-17.0) g/dL Hct 30.4 L (38.0-50.0) % MCV 93.3 (80.0-98.0) fL MCH 28.2 (27.0-32.0) pg MCHC 30.3 L (31.0-37.0) g/dL RDW Std Deviation 66.0 H (28.0-62.0) fl RDW Coeff of Oscar 19 H (11.0-15.0) % Plt Count 278 (150-400) K/uL MPV 8.50 (7.40-12.00) fL Neut % (Auto) 83.3 H (48.0-80.0) % Lymph % (Auto) 7.0 L (16.0-40.0) % [place] % (Auto) 9.6 (0.0-15.0) % Eos % (Auto) 0.0 (0.0-7.0) % Baso % (Auto) 0.1 (0.0-1.5) % Neut # (Auto) 6.8 H (1.4-5.7) K/uL Lymph # (Auto) 0.6 (0.6-2.4) K/uL [place] # (Auto) 0.8 (0.0-0.8) K/uL Eos # (Auto) 0.0 (0.0-0.7) K/uL Baso # (Auto) 0.0 (0.0-0.1) K/uL Nucleated RBC % 0.0 /100WBC Nucleated RBCs # 0 K/uL Sodium 141 (136-148) mmol/L Potassium 3.6 (3.5-5.1) mmol/L Chloride 105 (98-107) mmol/L Carbon Dioxide 27.6 (21.0-32.0) mmol/L BUN 17 (7.0-18.0) mg/dL Creatinine 1.0 (0.8-1.3) mg/dL Est Cr Clr Drug Dosing 60.83 mL/min Estimated GFR (MDRD) > 60.0 ml/min Glucose 86 (74-106) mg/dL Calcium 7.8 L (8.5-10.1) mg/dL Total Bilirubin 0.5 (0.2-1.0) mg/dL AST 26 (15-37) IU/L ALT 30 (14-63) IU/L Alkaline Phosphatase 67 (46-116) U/L Total Protein 5.6 L (6.4-8.2) g/dL Albumin 2.8 L (3.4-5.0) g/dL Globulin 2.8 (2.6-4.0) g/dL Albumin/Globulin Ratio 1.0 (0.9-1.6) Med Orders - Current: Current Medications Acetaminophen (Tylenol) 650 mg PO Q4H PRN PRN Reason: Pain (Mild 1-3)/fever Albuterol/Ipratropium (Combivent Respimat) 0 gm INH Q4H PRN PRN Reason: Dyspnea Last Admin: 01/05/20 06:58 Dose: 1 puff Documented by: Dexamethasone (Dexamethasone) 6 mg PO DAILY [facility] Last Admin: 01/05/20 08:25 Dose: 6 mg Documented by: Enoxaparin Sodium (Lovenox) 40 mg SUBCUT Q24H [facility] Last Admin: 01/04/20 16:17 Dose: 40 mg Documented by: Gabapentin (Neurontin) 600 mg PO BID [facility] Last Admin: 01/05/20 08:25 Dose: 600 mg Documented by: Remdesivir 100 mg/ Sodium (Chloride) 100 mls @ 100 mls/hr IV Q24H [facility] Stop: 01/06/20 17:30 Last Admin: 01/04/20 16:17 Dose: 100 mls/hr Documented by: Omeprazole (Omeprazole) 40 mg PO BIDAC [facility] Last Admin: 01/05/20 07:39 Dose: Not Given Documented by: Ondansetron HCl (Zofran Odt) 4 mg PO Q4H PRN PRN Reason: nausea, able to take PO Sertraline HCl (Zoloft) 50 mg PO BEDTIME [facility] Last Admin: 01/04/20 20:26 Dose: 50 mg Documented by: Sodium Chloride (Saline Flush) 10 ml FLUSH ASDIRECTED PRN PRN Reason: Keep Vein Open Last Admin: 01/02/20 12:12 Dose: 10 ml Documented by: Sodium Chloride (Saline Flush) 2.5 ml FLUSH ASDIRECTED PRN PRN Reason: Keep Vein Open Last Admin: 01/02/20 12:13 Dose: 2.5 ml Documented by: Sodium Chloride (Saline Flush) 2.5 ml FLUSH ASDIRECTED PRN PRN Reason: Keep Vein Open Last Admin: 01/02/20 12:13 Dose: 2.5 ml Documented by: Tramadol HCl (Ultram) 50 mg PO Q6H PRN PRN Reason: Pain Last Admin: 01/03/20 12:50 Dose: 50 mg Documented by: Discontinued Medications Remdesivir 200 mg/ Sodium (Chloride) 250 mls @ 250 mls/hr IV ONETIME ONE Stop: 01/02/20 16:26 Last Admin: 01/02/20 17:35 Dose: 250 mls/hr Documented by: Influenza Virus Vaccine (Pharmacy To Dose - Influenza Vaccine) 1 each IM ONETIME ONE Stop: 01/03/20 18:01 Influenza Virus Vaccine (Fluzone High-Dose Quad 2020-) 240 mcg IM .ONCE ONE Stop: 01/03/20 09:01 Omeprazole (Omeprazole) 40 mg PO BID [facility] Last Admin: 01/05/20 06:57 Dose: 40 mg Documented by: - Exam General: Alert, Oriented Neck: Supple Lungs: Clear to Auscultation, Normal Respiratory Effort Cardiovascular: Regular Rate, Regular Rhythm GI/Abdominal Exam: Soft, Non-Tender, No Distention Extremities: Non-Tender, No Pedal Edema Skin: Warm, Dry, Intact Neurological: No New Focal Deficit Sepsis Event Note - Evaluation Sepsis Screening Result: No Definite Risk - Focused Exam Vital Signs: Vital Signs Temp Pulse Resp BP Pulse Ox Pulse Ox 01/05/20 09:00 90 L 01/05/20 08:00 36.8 C 68 19 132/68 89 L 01/05/20 04:00 36.6 C 64 19 132/72 93 L - Problem List Review Problem List Initiated/Reviewed/Updated: Yes - My Orders Last 24 Hours: My Active Orders 01/04/20 17:00 Omeprazole 40 mg PO BIDAC 01/06/20 05:11 BASIC METABOLIC PANEL,BMP [CHEM] AM CBC WITH AUTO DIFF [HEME] AM - Plan Plan:: 79 yo male admitted for Acute hypoxic respiratory failure from COVID-19 COVID-19: requiring 2 liters [place] supplemental oxygen. continue remdesivir, dexamethasone and prophylactic lovenox. Anticipate discharge home Monday
[2020-01-05] MEDS: REMDESIVIR (EUA) 100 MG in Sodium Chloride 0.9% 100 ML IV SCH (16:10)
[2020-01-05] MEDS: Enoxaparin 40 MG/0.4 ML Syringe SUBCUT SCH (16:16)
[2020-01-05] MEDS: Sertraline 50 MG Tab PO SCH (20:11)
[2020-01-05] MEDS: traMADol 50 MG Tab PO PRN (20:59)
[2020-01-06] MEDS: Albuterol/Ipratropium 4 GM Inhalation Spray INH PRN (03:54)
[2020-01-06 06:29] LABS: BLOOD UREA NITROGEN,BUN 17 mg/dL (7.0-18.0); CHLORIDE,CL 106 mmol/L (98-107); GLUCOSE RANDOM 96 mg/dL (74-106); POTASSIUM,K 3.3 mmol/L (3.5-5.1); SODIUM,NA 141 mmol/L (136-148)
[2020-01-06] MEDS: Omeprazole 20 MG Cap.CR PO SCH ×2 (06:30→18:13)
[2020-01-06] MEDS: Dexamethasone 4 MG Tab PO SCH (08:47)
[2020-01-06] MEDS: Gabapentin 300 MG Cap PO SCH (08:48)
[2020-01-06] MEDS ORDERED: FLU Vacc QV2020-21(65YR UP)/PF 240 MCG/0.7 ML Syringe IM ONE (11:57)
--- NOTE | 2020-01-06 12:44 | PCM.DCSUM1 ---
Discharge Summary - Discharge Data Discharge Date: 01/06/20 Discharge Disposition: Home, Self-Care 01 Condition: Good - Referral to Home Health Primary Care Physician: Alejandra Ornelas MD - Patient Summary/Data Hospital Course: 79 yo male with pmh of metastatic prostate cancer who was found to be hypoxic during his oncology clinic visit. He was sent to the ED for evaluation. He denies any fevers, chills, diarrhea, headache, nausea, vomiting, or shortness of breath. He does have nonproductive cough. CXR showed bilateral lung opacities. He was requiring 2 L NC to maintain sats above 90%. He was treated with Remdesivir for five days and dexamethasone. Patient never reported shortness of breath and felt generally well except for cough. He is wanting to be discharged home today. He was discharged home with five more days of dexamethasone. He was satting 87% on room air so was sent home with supplemental oxygen at 2 L NC. - Patient Instructions Diet: Usual Diet as Tolerated - Discharge Plan Prescriptions/Med Rec: dexAMETHasone [Dexamethasone] 6 mg PO DAILY #5 tab Home Medications: Home Meds Aspirin 81 mg PO ASDIRECTED 01/02/20 [History] Calcium Carbonate [Calcium] 01/02/20 [History] Cholecalciferol (Vitamin D3) [Vitamin D] 5,000 unit PO DAILY 01/02/20 [History] Gabapentin [Neurontin] 600 mg PO BID 01/02/20 [History] Omeprazole 40 mg PO BID 01/02/20 [History] Vitamin E 400 unit PO DAILY 01/02/20 [History] traMADol [Ultram] 50 mg PO Q4HR PRN 01/02/20 [History] Enzalutamide [Xtandi] 160 mg PO DAILY 01/03/20 [History] Fenofibrate 54 mg PO DAILY 01/03/20 [History] Ondansetron [Zofran] 8 mg PO Q8HR PRN 01/03/20 [History] Sertraline HCl 50 mg PO DAILY 01/03/20 [History] guaiFENesin [Mucinex] 600 mg PO BEDTIME PRN 01/03/20 [History] dexAMETHasone [Dexamethasone] 6 mg PO DAILY #5 tab 01/06/20 [Rx] Oxygen Therapy Mode: Nasal Cannula Oxygen Flow Rate (L/min): 2 Forms: ED Department Discharge Referrals: Alejandra Ornelas MD [Primary Care Provider] - 01/13/20 10:45 am - Discharge Summary/Plan Comment DC Time >30 min.: No - Patient Data Vitals - Most Recent: Last Vital Signs Temp 37.1 C 01/06/20 08:42 Pulse 63 01/06/20 08:42 Resp 18 01/06/20 08:42 BP 125/57 L 01/06/20 08:42 Pulse Ox 93 L 01/06/20 03:55 Weight - Most Recent: 96.615 kg I&O - Last 24 hours: Intake & Output 01/05/20 01/06/20 01/06/20 22:59 06:59 14:59 Intake Total 750 750 Output Total 680 400 Balance 70 350 Lab Results - Last 24 hrs: Laboratory Results - last 24 hr 01/06/20 01/06/20 Range/Units 05:40 05:40 WBC 10.62 (4.0-11.0) K/uL RBC 3.30 L (4.50-5.90) M/uL Hgb 9.6 L (13.0-17.0) g/dL Hct 30.8 L (38.0-50.0) % MCV 93.3 (80.0-98.0) fL MCH 29.1 (27.0-32.0) pg MCHC 31.2 (31.0-37.0) g/dL RDW Std Deviation 65.3 H (28.0-62.0) fl RDW Coeff of Oscar 19 H (11.0-15.0) % Plt Count 305 (150-400) K/uL MPV 8.20 (7.40-12.00) fL Neut % (Auto) 86.3 H (48.0-80.0) % Lymph % (Auto) 5.0 L (16.0-40.0) % [place] % (Auto) 8.7 (0.0-15.0) % Eos % (Auto) 0.0 (0.0-7.0) % Baso % (Auto) 0.0 (0.0-1.5) % Neut # (Auto) 9.2 H (1.4-5.7) K/uL Lymph # (Auto) 0.5 L (0.6-2.4) K/uL [place] # (Auto) 0.9 H (0.0-0.8) K/uL Eos # (Auto) 0.0 (0.0-0.7) K/uL Baso # (Auto) 0.0 (0.0-0.1) K/uL Nucleated RBC % 0.0 /100WBC Nucleated RBCs # 0 K/uL Sodium 141 (136-148) mmol/L Potassium 3.3 L (3.5-5.1) mmol/L Chloride 106 (98-107) mmol/L Carbon Dioxide 24.0 (21.0-32.0) mmol/L BUN 17 (7.0-18.0) mg/dL Creatinine 1.0 (0.8-1.3) mg/dL Est Cr Clr Drug Dosing 60.83 mL/min Estimated GFR (MDRD) > 60.0 ml/min Glucose 96 (74-106) mg/dL Calcium 7.7 L (8.5-10.1) mg/dL Total Bilirubin 0.6 (0.2-1.0) mg/dL AST 20 (15-37) IU/L ALT 28 (14-63) IU/L Alkaline Phosphatase 76 (46-116) U/L Total Protein 5.9 L (6.4-8.2) g/dL Albumin 3.0 L (3.4-5.0) g/dL Globulin 2.9 (2.6-4.0) g/dL Albumin/Globulin Ratio 1.0 (0.9-1.6) Med Orders - Current: Current Medications Acetaminophen (Tylenol) 650 mg PO Q4H PRN PRN Reason: Pain (Mild 1-3)/fever Albuterol/Ipratropium (Combivent Respimat) 0 gm INH Q4H PRN PRN Reason: Dyspnea Last Admin: 01/06/20 03:54 Dose: 1 puff Documented by: Dexamethasone (Dexamethasone) 6 mg PO DAILY [facility] Last Admin: 01/06/20 08:47 Dose: 6 mg Documented by: Enoxaparin Sodium (Lovenox) 40 mg SUBCUT Q24H [facility] Last Admin: 01/05/20 16:16 Dose: 40 mg Documented by: Gabapentin (Neurontin) 600 mg PO BID [facility] Last Admin: 01/06/20 08:48 Dose: 600 mg Documented by: Remdesivir 100 mg/ Sodium (Chloride) 100 mls @ 100 mls/hr IV Q24H [facility] Stop: 01/06/20 17:30 Last Admin: 01/05/20 16:10 Dose: 100 mls/hr Documented by: Omeprazole (Omeprazole) 40 mg PO BIDAC [facility] Last Admin: 01/06/20 06:30 Dose: 40 mg Documented by: Ondansetron HCl (Zofran Odt) 4 mg PO Q4H PRN PRN Reason: nausea, able to take PO Sertraline HCl (Zoloft) 50 mg PO BEDTIME [facility] Last Admin: 01/05/20 20:11 Dose: 50 mg Documented by: Sodium Chloride (Saline Flush) 10 ml FLUSH ASDIRECTED PRN PRN Reason: Keep Vein Open Last Admin: 01/02/20 12:12 Dose: 10 ml Documented by: Sodium Chloride (Saline Flush) 2.5 ml FLUSH ASDIRECTED PRN PRN Reason: Keep Vein Open Last Admin: 01/02/20 12:13 Dose: 2.5 ml Documented by: Sodium Chloride (Saline Flush) 2.5 ml FLUSH ASDIRECTED PRN PRN Reason: Keep Vein Open Last Admin: 01/02/20 12:13 Dose: 2.5 ml Documented by: Tramadol HCl (Ultram) 50 mg PO Q6H PRN PRN Reason: Pain Last Admin: 01/05/20 20:59 Dose: 50 mg Documented by: Discontinued Medications Remdesivir 200 mg/ Sodium (Chloride) 250 mls @ 250 mls/hr IV ONETIME ONE Stop: 01/02/20 16:26 Last Admin: 01/02/20 17:35 Dose: 250 mls/hr Documented by: Influenza Virus Vaccine (Pharmacy To Dose - Influenza Vaccine) 1 each IM ONETIME ONE Stop: 01/03/20 18:01 Influenza Virus Vaccine (Fluzone High-Dose Quad 2019-) 240 mcg IM .ONCE ONE Stop: 01/03/20 09:01 Influenza Virus Vaccine (Fluzone High-Dose Quad 2019-) 240 mcg IM .ONCE ONE Stop: 01/06/20 11:58 Omeprazole (Omeprazole) 40 mg PO BID [facility] Last Admin: 01/05/20 06:57 Dose: 40 mg Documented by:
[2020-01-06] MEDS: REMDESIVIR (EUA) 100 MG in Sodium Chloride 0.9% 100 ML IV SCH (17:06)
[2020-01-06] MEDS: Enoxaparin 40 MG/0.4 ML Syringe SUBCUT SCH (18:13)
== END 2020-01-06 18:45 | disposition home or self-care (01) | DRG 177 ==
LOC: MW.ED 11:48 → MW.MS 15:32
PROVIDERS: ADMIT Internal Medicine; ATTEND Internal Medicine
PROC: XW033E5 Introduction of Remdesivir Anti-infective into Peripheral Vein, Percutaneous Approach, New Technology Group 5 (ICD-10-PCS; principal; 2020-01-02)
PROC: 8E0ZXY6 Isolation (ICD-10-PCS; 2020-01-02)
DX: R06.02 Shortness of breath (principal); U07.1 COVID-19; J96.01 Acute respiratory failure with hypoxia; R05 Cough; Z85.46 Personal history of malignant neoplasm of prostate; C61 Malignant neoplasm of prostate; C79.51 Secondary malignant neoplasm of bone; Z79.82 Long term (current) use of aspirin; Z79.899 Other long term (current) drug therapy
CPT/HCPCS: 36415; 71045; 80053; 83880; 84484; 85025; 93005; 99285; U0002; 90662; A9270-GY; G0008; J1650; J7050; J8540

== ENCOUNTER 2020-12-15 16:14 | Observation (INO) | payer MEDICARE, OTHER ==
--- NOTE | 2020-12-15 17:01 | EDM.PDOC ---
ED HPI GENERAL MEDICAL PROBLEM - General Chief Complaint: Respiratory Problem Stated Complaint: BIBI REFFERED Time Seen by Provider: 12/15/20 16:36 Source of Information: Reports: Patient History Limitations: Reports: No Limitations - History of Present Illness INITIAL COMMENTS - FREE TEXT/NARRATIVE: HISTORY AND PHYSICAL: History of present illness: Patient is an 80-year-old male who presents to the emergency room after a referral from [facility]. He was there for routine labs for his cancer care; Dr Jay informed him that he needed a work-up for sepsis and needed to come to the ED. Patient states he feels "fine" and thought he was coming here for a medical screening to get his Botox procedure in [place] in December. Patient denies any fever, chills, headache, change in vision, syncope or near syncope. Denies any chest pain, back pain, shortness of breath or cough. Denies any abdominal pain, nausea, vomiting, diarrhea, constipation or dysuria. Has not noted any blood in urine or stool. Patient has been eating and drinking appropriately. Review of systems: As per history of present illness and below otherwise all systems reviewed and negative. Past medical history: As per history of present illness and as reviewed below otherwise noncontributory. Surgical history: As per history of present illness and as reviewed below otherwise noncontributory. Social history: See social history for further information Family history: As per history of present illness and as reviewed below otherwise noncontributory. Physical exam: General: Well developed and well nourished 80-year-old male. Alert and orientated x 3. Nontoxic in appearance and in no acute distress. Vital signs are stable and have been reviewed by me. Nursing notes were reviewed. HEENT: Atraumatic, normocephalic, pupils equal and reactive bilaterally, negative for conjunctival pallor or scleral icterus, mucous membranes moist, neck supple, nontender, trachea midline. No drooling or trismus noted. No meningeal signs. No hot potato voice noted. Lungs: Clear to auscultation with the exception of some rhonchi noted in the right lower lobe. No wheezes noted. Chest nontender. Normal work of breathing, no accessory muscles used. Heart: S1S2, regular rate and rhythm without overt murmur, gallops, or rubs. No JVD. No peripheral edema Abdomen: Soft, nondistended, nontender. Normoactive bowel sounds. Negative for masses or costovertebral tenderness. Skin: Intact, warm, dry. No lesions or rashes noted. Hematologic: No petechiae or purpra. Mucosa appropriate color and normal nail bed color and refill. Extremities: Atraumatic, moves all extremities per self without difficulty or deficits, negative for cords or calf pain. Neurovascular unremarkable. Neuro: Awake, alert, oriented. Cranial nerves II through XII unremarkable. Cerebellum unremarkable. Motor and sensory unremarkable throughout. Exam nonfocal. Psychiatric: Mood and affect are appropriate. Normal thought process. Answering questions appropriately. Please note that the patient was seen and evaluated during the 2019 SARS-CoV-2 novel coronavirus pandemic period. Community viral transmission is ongoing at time of this encounter and the emergency department is operating under pandemic response procedures. Medical Decision Making: Patient is an 80-year-old male who states he has no current complaints or conc erns but was sent here to the emergency room for elevated WBC. Patient's physical exam is unremarkable with the exception of some rhonchi in the right lower lobe. He is agreeable to repeat lab work and chest x-ray. He states he did have a chest x-ray done earlier today although I do not have results of this are able to view it on our PACS system. Patient's WBC at [place] this morning was 27, it is now 30. Lactate is normal. Chest x-ray shows focal pulmonary opacity in the peripheral right lung base. Infectious infiltrate is not excluded. Stable mild enlargement of the cardiac silhouette. No sizable pleural effusion. No pneumothorax. Diffuse osseous sclerosis, similar to prior. Blood cultures are pending. I will hang IV vancomycin. Dr. Rodríguez was consulted on this patient. Patient is otherwise stable with out tachycardia, chest pain, cough or shortness of breath. Blood pressure is within normal limits and he is afebrile. Will admit for observation for IV antibiotics and continued monitoring. Patient and his were reviewed of all findings and are agreeable to staying. Diagnostics: CBC, CMP, Lactate, BC x 2, Chest x-ray, COVID, [employer]: Vancomycin 1gm Impression: RLL pneumonia Definitive disposition and diagnosis as appropriate pending reevaluation and review of above. - Related Data Allergies Allergy/AdvReac Type Severity Reaction Status Date / Time No Known Allergies Allergy Verified 12/15/20 16:36 Home Meds: Home Meds Aspirin 81 mg PO ASDIRECTED 01/02/20 [History] Calcium Carbonate [Calcium] 01/02/20 [History] Cholecalciferol (Vitamin D3) [Vitamin D] 5,000 unit PO DAILY 01/02/20 [History] Gabapentin [Neurontin] 600 mg PO BID 01/02/20 [History] Omeprazole 40 mg PO BID 01/02/20 [History] Vitamin E 400 unit PO DAILY 01/02/20 [History] traMADol [Ultram] 50 mg PO Q4HR PRN 01/02/20 [History] Enzalutamide [Xtandi] 160 mg PO DAILY 01/03/20 [History] Fenofibrate 54 mg PO DAILY 01/03/20 [History] Ondansetron [Zofran] 8 mg PO Q8HR PRN 01/03/20 [History] Sertraline HCl 50 mg PO DAILY 01/03/20 [History] guaiFENesin [Mucinex] 600 mg PO BEDTIME PRN 01/03/20 [History] dexAMETHasone [Dexamethasone] 6 mg PO DAILY #5 tab 01/06/20 [Rx] Past Medical History Oncologic (Cancer) History: Reports: Prostate - Infectious Disease History Infectious Disease History: Reports: Chicken Pox, Shingles - Past Surgical History Male Surgical History: Reports: Prostatectomy Social & Family History - Caffeine Use Caffeine Use: Reports: Coffee ED ROS GENERAL - Review of Systems Review Of Systems: Comprehensive ROS is negative, except as noted in HPI. ED EXAM, GENERAL - Physical Exam Exam: See Below (See dictation) Course - Vital Signs Last Recorded V/S: Last Vital Signs Temp 98.1 F 12/15/20 18:34 Pulse 84 12/15/20 18:34 Resp 18 12/15/20 18:34 BP 140/82 12/15/20 18:34 Pulse Ox 98 12/15/20 18:34 - Orders/Labs/Meds Orders: Active Orders 24 hr Category Date Time Status CULTURE BLOOD [BC] Stat Lab 12/15/20 16:53 Received CULTURE BLOOD [BC] Stat Lab 12/15/20 17:00 Received Blood Culture x2 Reflex Set [OM.PC] Stat Oth 12/15/20 16:39 Ordered Medication Orders Acetaminophen (Acetaminophen 325 Mg Tab) 650 mg PO Q4H PRN PRN Reason: Pain (Mild 1-3)/fever Albuterol/Ipratropium (Albuterol/Ipratropium 3.0-0.5 Mg/3 Ml Neb Soln) 3 ml NEB Q4HRRT PRN PRN Reason: Shortness Of Breath/wheezing Vancomycin HCl 1 gm/ Sodium (Chloride) 250 mls @ 166 mls/hr IV ONETIME ONE Stop: 12/15/20 19:33 Last Admin: 12/15/20 18:22 Dose: 166 mls/hr Documented by: MERCEDES Pantoprazole Sodium 40 mg/ (Sodium Chloride) 10 mls @ 300 mls/hr IV DAILY [facility] Piperacillin Sod/Tazobactam (Sod 4.5 gm/ Sodium Chloride) 100 mls @ 100 mls/hr IV Q8H [facility] Vancomycin HCl 1.5 gm/ Premix 300 mls @ 200 mls/hr IV Q24H [facility] Vancomycin HCl (Pharmacy To Dose - Vancomycin) 1 dose .XX ASDIRECTED [facility] Labs: Laboratory Tests 12/15/20 12/15/20 12/15/20 Range/Units 16:46 16:53 16:53 WBC 30.43 H (4.0-11.0) K/uL RBC 3.34 L (4.50-5.90) M/uL Hgb 9.5 L (13.0-17.0) g/dL Hct 29.5 L (38.0-50.0) % MCV 88.3 (80.0-98.0) fL MCH 28.4 (27.0-32.0) pg MCHC 32.2 (31.0-37.0) g/dL RDW Std Deviation 63.8 H (28.0-62.0) fl RDW Coeff of Oscar 20 H (11.0-15.0) % Plt Count 304 (150-400) K/uL MPV 8.90 (7.40-12.00) fL Add Manual Diff YES Neutrophils % (Manual) 75 (48.0-80.0) % Band Neutrophils % 21 % Lymphocytes % (Manual) 1 L (16.0-40.0) % Monocytes % (Manual) 3 (0.0-15.0) % Nucleated RBC % 1.0 /100WBC Absolute Seg Neuts 22.8 H (1.4-5.7) Band Neutrophils # 6.4 Lymphocytes # (Manual) 0.3 L (0.6-2.4) Monocytes # (Manual) 0.9 H (0.0-0.8) Nucleated RBCs # 0 K/uL Sodium 136 (136-148) mmol/L Potassium 4.6 (3.5-5.1) mmol/L Chloride 102 (98-107) mmol/L Carbon Dioxide 24.7 (21.0-32.0) mmol/L BUN 13 (7.0-18.0) mg/dL Creatinine 1.3 (0.8-1.3) mg/dL Est Cr Clr Drug Dosing 47.46 mL/min Estimated GFR (MDRD) 53.0 ml/min Glucose 182 H (74-106) mg/dL Lactic Acid (0.4-2.0) mmol/L Calcium 8.3 L (8.5-10.1) mg/dL Total Bilirubin 0.4 (0.2-1.0) mg/dL AST 24 (15-37) IU/L ALT 16 (14-63) IU/L Alkaline Phosphatase 343 H (46-116) U/L Total Protein 6.5 (6.4-8.2) g/dL Albumin 3.1 L (3.4-5.0) g/dL Globulin 3.4 (2.6-4.0) g/dL Albumin/Globulin Ratio 0.9 (0.9-1.6) Urine Color YELLOW Urine Appearance CLEAR Urine pH 6.0 (5.0-8.0) Ur Specific [place] 1.020 (1.001-1.035) Urine Protein NEGATIVE (NEGATIVE) mg/dL Urine Glucose (UA) NEGATIVE (NEGATIVE) mg/dL Urine Ketones NEGATIVE (NEGATIVE) mg/dL Urine Occult Blood NEGATIVE (NEGATIVE) Urine Nitrite NEGATIVE (NEGATIVE) Urine Bilirubin NEGATIVE (NEGATIVE) Urine Urobilinogen 2.0 H (<2.0) EU/dL Ur Leukocyte Esterase NEGATIVE (NEGATIVE) SARS-CoV-2 RNA (KP) (NEGATIVE) 12/15/20 12/15/20 Range/Units 17:00 17:50 WBC (4.0-11.0) K/uL RBC (4.50-5.90) M/uL Hgb (13.0-17.0) g/dL Hct (38.0-50.0) % MCV (80.0-98.0) fL MCH (27.0-32.0) pg MCHC (31.0-37.0) g/dL RDW Std Deviation (28.0-62.0) fl RDW Coeff of Oscar (11.0-15.0) % Plt Count (150-400) K/uL MPV (7.40-12.00) fL Add Manual Diff Neutrophils % (Manual) (48.0-80.0) % Band Neutrophils % % Lymphocytes % (Manual) (16.0-40.0) % Monocytes % (Manual) (0.0-15.0) % Nucleated RBC % /100WBC Absolute Seg Neuts (1.4-5.7) Band Neutrophils # Lymphocytes # (Manual) (0.6-2.4) Monocytes # (Manual) (0.0-0.8) Nucleated RBCs # K/uL Sodium (136-148) mmol/L Potassium (3.5-5.1) mmol/L Chloride (98-107) mmol/L Carbon Dioxide (21.0-32.0) mmol/L BUN (7.0-18.0) mg/dL Creatinine (0.8-1.3) mg/dL Est Cr Clr Drug Dosing mL/min Estimated GFR (MDRD) ml/min Glucose (74-106) mg/dL Lactic Acid 2.0 (0.4-2.0) mmol/L Calcium (8.5-10.1) mg/dL Total Bilirubin (0.2-1.0) mg/dL AST (15-37) IU/L ALT (14-63) IU/L Alkaline Phosphatase (46-116) U/L Total Protein (6.4-8.2) g/dL Albumin (3.4-5.0) g/dL Globulin (2.6-4.0) g/dL Albumin/Globulin Ratio (0.9-1.6) Urine Color Urine Appearance Urine pH (5.0-8.0) Ur Specific [place] (1.001-1.035) Urine Protein (NEGATIVE) mg/dL Urine Glucose (UA) (NEGATIVE) mg/dL Urine Ketones (NEGATIVE) mg/dL Urine Occult Blood (NEGATIVE) Urine Nitrite (NEGATIVE) Urine Bilirubin (NEGATIVE) Urine Urobilinogen (<2.0) EU/dL Ur Leukocyte Esterase (NEGATIVE) SARS-CoV-2 RNA (KP) NEGATIVE (NEGATIVE) Meds: Medications Generic Name Dose Route Start Last Admin Trade Name Freq PRN Reason Stop Dose Admin Acetaminophen 650 mg 12/15/20 18:24 Acetaminophen 325 Mg Tab PO Q4H PRN Pain (Mild 1-3)/fever Albuterol/Ipratropium 3 ml 12/15/20 18:24 Albuterol/Ipratropium 3.0-0.5 Mg/3 Ml Neb Soln NEB Q4HRRT PRN Shortness Of Breath/wheezing Vancomycin HCl 1 gm/ Sodium 250 mls @ 166 mls/hr 12/15/20 18:03 12/15/20 18:22 Chloride IV 12/15/20 19:33 166 mls/hr ONETIME ONE Administration Pantoprazole Sodium 40 mg/ 10 mls @ 300 mls/hr 12/16/20 09:00 Sodium Chloride IV DAILY [facility] Piperacillin Sod/Tazobactam 100 mls @ 100 mls/hr 12/15/20 18:30 Sod 4.5 gm/ Sodium Chloride IV Q8H [facility] Vancomycin HCl 1.5 gm/ Premix 300 mls @ 200 mls/hr 12/16/20 12:00 IV Q24H [facility] Vancomycin HCl 1 dose 12/15/20 18:45 Pharmacy To Dose - Vancomycin .XX ASDIRECTED [facility] Departure - Departure Time of Disposition: 18:37 Disposition: Refer to Observation Clinical Impression: Pneumonia Qualifiers: Pneumonia type: due to unspecified organism Laterality: right Lung location: lower lobe of lung Qualified Code(s): J18.9 - Pneumonia, unspecified organism - Discharge Information Sepsis Event Note (ED) - Focused Exam Vital Signs: Vital Signs Temp Pulse Resp BP Pulse Ox 12/15/20 17:49 98.2 F 84 18 131/86 95 12/15/20 16:36 97.5 F 82 17 123/102 H 97 - My Orders Last 24 Hours: My Active Orders 12/15/20 16:39 Blood Culture x2 Reflex Set [OM.PC] Stat 12/15/20 16:53 CULTURE BLOOD [BC] Stat 12/15/20 17:00 CULTURE BLOOD [BC] Stat - Assessment/Plan Last 24 Hours: My Active Orders 12/15/20 16:39 Blood Culture x2 Reflex Set [OM.PC] Stat 12/15/20 16:53 CULTURE BLOOD [BC] Stat 12/15/20 17:00 CULTURE BLOOD [BC] Stat
[2020-12-15 17:35] LABS: CARBON DIOXIDE,CO2 24.7 mmol/L (21.0-32.0); POTASSIUM,K 4.6 mmol/L (3.5-5.1)
--- NOTE | 2020-12-15 18:10 | CR ---
Indication: Leukocytosis Technique: Portable upright AP view of the chest Comparison: PA chest radiograph 01/02/2020 Findings/Impression: 1. Focal pulmonary opacity in the peripheral right lung base. Infectious infiltrate is not excluded. Correlate clinically. 2. Stable mild enlargement of the cardiac silhouette. No sizable pleural effusion. No pneumothorax. 3. Diffuse osseous sclerosis, similar to prior. Correlate clinically. Dictated by Hayes La MD @ 12/15/2020 6:08:51 PM (Electronically Signed)
--- NOTE | 2020-12-15 18:20 | PCM.HP.2 ---
<Shane Bo - Last Filed: 12/15/20 21:04> H&P History of Present Illness - General Date of Service: 12/15/20 Admit Problem/Dx: Admission Diagnosis/Problem Admission Diagnosis/Problem Pneumonia - History of Present Illness Initial Comments - Free Text/Narative: 80-year-old male patient with past medical history of prostate cancer s/p prostatectomy 10yrs ago being treated with Xtandi, presents to the ED over concern of pneumonia from patient's primary care provider. Patient admitted for community-acquired pneumonia. Patient states visiting his primary care physician today in [place] for a preop authorization exam for Botox injection of the esophagus due to swallowing difficulties. At the time of his preop authorization lab work was performed which revealed elevated white blood cell count, patient was then asked to have a chest x-ray performed at [facility] which per patient account was suspicious for pneumonia. Patient's primary care physician contacted the patient's oncologist who recommended patient visit emergency department for further evaluation due to elevated white blood cell count and chest x-ray findings. Patient states he feels fine, denies fever, chills, nausea, vomiting, headache, chest pain, shortness of breath. Patient denies any past cardiac or respiratory diseases, denies diabetes. ED course- blood cultures x2, vancomycin 1 g one-time. Chest x-ray impression- focal pulmonary opacity in the peripheral right lung base. White blood cell 30.4, hemoglobin 9.5, hematocrit 20.5, platelet 304, sodium 136, potassium 4.6, BUN 13, creatinine 1.3. Urinalysis negative Patient admitted and started on vancomycin, Zosyn. Patient's med rec was not completed at the time of admission due to medications being un-verifiable. - Related Data Allergies/Adverse Reactions: Allergies Allergy/AdvReac Type Severity Reaction Status Date / Time No Known Allergies Allergy Verified 12/16/20 17:43 Home Medications: Home Meds guaiFENesin [Mucinex] 600 mg PO BEDTIME PRN 01/03/20 [History] Morphine Sulfate 15 mg PO Q8H PRN 12/16/20 [History] Morphine Sulfate [Morphine Sulfate ER] 15 mg PO Q12H PRN 12/16/20 [History] Pantoprazole [ProTONIX] 40 mg PO BID 12/16/20 [History] predniSONE [Prednisone] 10 mg PO DAILY 12/16/20 [History] traMADol HCl [Tramadol HCl] 100 mg PO Q6HR PRN 12/16/20 [History] levoFLOXacin [Levaquin] 750 mg PO Q24H 4 Days #4 tablet 12/18/20 [Rx] polyethylene glycoL 3350 [MiraLAX] 17 gm PO BEDTIME #7 packet 12/18/20 [Rx] Past Medical History Oncologic (Cancer) History: Reports: Prostate - Infectious Disease History Infectious Disease History: Reports: Chicken Pox, Shingles - Past Surgical History Male Surgical History: Reports: Prostatectomy Social & Family History - Family History Family Medical History: No Pertinent Family History - Tobacco Use Tobacco Use Status *Q: Never Tobacco User - Caffeine Use Caffeine Use: Reports: Coffee - Recreational Drug Use Recreational Drug Use: No H&P Review of Systems - Review of Systems: Review Of Systems: See Below General: Denies: Fever, Chills, Weakness Pulmonary: Denies: Shortness of Breath, Wheezing, Cough Cardiovascular: Denies: Chest Pain, Orthopnea, Edema Gastrointestinal: Denies: Abdominal Pain, Decreased Appetite, Distension, Na usea, Vomiting Musculoskeletal: Denies: Back Pain Neurological: Denies: Confusion, Dizziness, Headache Exam - Exam Exam: See Below - Vital Signs Vital Signs: Last Vital Signs Temp 98.2 F 12/15/20 17:49 Pulse 84 12/15/20 17:49 Resp 18 12/15/20 17:49 BP 131/86 12/15/20 17:49 Pulse Ox 95 12/15/20 17:49 Weight: 90.718 kg - Exam General: Alert, Oriented Lungs: Clear to Auscultation, Normal Respiratory Effort Cardiovascular: Regular Rate, Regular Rhythm GI/Abdominal Exam: Soft, Non-Tender Extremities: No Pedal Edema Neuro Extensive - Mental Status: Alert, Oriented x3 - Patient Data Lab Results Last 24 hrs: Laboratory Results - last 24 hr 12/15/20 12/15/20 12/15/20 Range/Units 16:46 16:53 16:53 WBC 30.43 H (4.0-11.0) K/uL RBC 3.34 L (4.50-5.90) M/uL Hgb 9.5 L (13.0-17.0) g/dL Hct 29.5 L (38.0-50.0) % MCV 88.3 (80.0-98.0) fL MCH 28.4 (27.0-32.0) pg MCHC 32.2 (31.0-37.0) g/dL RDW Std Deviation 63.8 H (28.0-62.0) fl RDW Coeff of Oscar 20 H (11.0-15.0) % Plt Count 304 (150-400) K/uL MPV 8.90 (7.40-12.00) fL Add Manual Diff YES Neutrophils % (Manual) 75 (48.0-80.0) % Band Neutrophils % 21 % Lymphocytes % (Manual) 1 L (16.0-40.0) % Monocytes % (Manual) 3 (0.0-15.0) % Nucleated RBC % 1.0 /100WBC Absolute Seg Neuts 22.8 H (1.4-5.7) Band Neutrophils # 6.4 Lymphocytes # (Manual) 0.3 L (0.6-2.4) Monocytes # (Manual) 0.9 H (0.0-0.8) Nucleated RBCs # 0 K/uL Sodium 136 (136-148) mmol/L Potassium 4.6 (3.5-5.1) mmol/L Chloride 102 (98-107) mmol/L Carbon Dioxide 24.7 (21.0-32.0) mmol/L BUN 13 (7.0-18.0) mg/dL Creatinine 1.3 (0.8-1.3) mg/dL Est Cr Clr Drug Dosing 47.46 mL/min Estimated GFR (MDRD) 53.0 ml/min Glucose 182 H (74-106) mg/dL Lactic Acid (0.4-2.0) mmol/L Calcium 8.3 L (8.5-10.1) mg/dL Total Bilirubin 0.4 (0.2-1.0) mg/dL AST 24 (15-37) IU/L ALT 16 (14-63) IU/L Alkaline Phosphatase 343 H (46-116) U/L Total Protein 6.5 (6.4-8.2) g/dL Albumin 3.1 L (3.4-5.0) g/dL Globulin 3.4 (2.6-4.0) g/dL Albumin/Globulin Ratio 0.9 (0.9-1.6) Urine Color YELLOW Urine Appearance CLEAR Urine pH 6.0 (5.0-8.0) Ur Specific [place] 1.020 (1.001-1.035) Urine Protein NEGATIVE (NEGATIVE) mg/dL Urine Glucose (UA) NEGATIVE (NEGATIVE) mg/dL Urine Ketones NEGATIVE (NEGATIVE) mg/dL Urine Occult Blood NEGATIVE (NEGATIVE) Urine Nitrite NEGATIVE (NEGATIVE) Urine Bilirubin NEGATIVE (NEGATIVE) Urine Urobilinogen 2.0 H (<2.0) EU/dL Ur Leukocyte Esterase NEGATIVE (NEGATIVE) 12/15/20 Range/Units 17:00 WBC (4.0-11.0) K/uL RBC (4.50-5.90) M/uL Hgb (13.0-17.0) g/dL Hct (38.0-50.0) % MCV (80.0-98.0) fL MCH (27.0-32.0) pg MCHC (31.0-37.0) g/dL RDW Std Deviation (28.0-62.0) fl RDW Coeff of Oscar (11.0-15.0) % Plt Count (150-400) K/uL MPV (7.40-12.00) fL Add Manual Diff Neutrophils % (Manual) (48.0-80.0) % Band Neutrophils % % Lymphocytes % (Manual) (16.0-40.0) % Monocytes % (Manual) (0.0-15.0) % Nucleated RBC % /100WBC Absolute Seg Neuts (1.4-5.7) Band Neutrophils # Lymphocytes # (Manual) (0.6-2.4) Monocytes # (Manual) (0.0-0.8) Nucleated RBCs # K/uL Sodium (136-148) mmol/L Potassium (3.5-5.1) mmol/L Chloride (98-107) mmol/L Carbon Dioxide (21.0-32.0) mmol/L BUN (7.0-18.0) mg/dL Creatinine (0.8-1.3) mg/dL Est Cr Clr Drug Dosing mL/min Estimated GFR (MDRD) ml/min Glucose (74-106) mg/dL Lactic Acid 2.0 (0.4-2.0) mmol/L Calcium (8.5-10.1) mg/dL Total Bilirubin (0.2-1.0) mg/dL AST (15-37) IU/L ALT (14-63) IU/L Alkaline Phosphatase (46-116) U/L Total Protein (6.4-8.2) g/dL Albumin (3.4-5.0) g/dL Globulin (2.6-4.0) g/dL Albumin/Globulin Ratio (0.9-1.6) Urine Color Urine Appearance Urine pH (5.0-8.0) Ur Specific [place] (1.001-1.035) Urine Protein (NEGATIVE) mg/dL Urine Glucose (UA) (NEGATIVE) mg/dL Urine Ketones (NEGATIVE) mg/dL Urine Occult Blood (NEGATIVE) Urine Nitrite (NEGATIVE) Urine Bilirubin (NEGATIVE) Urine Urobilinogen (<2.0) EU/dL Ur Leukocyte Esterase (NEGATIVE) Result Diagrams: 12/15/20 16:53 12/15/20 16:53 Sepsis Event Note - Evaluation Sepsis Screening Result: No Definite Risk - Focused Exam Vital Signs: Vital Signs Temp Pulse Resp BP Pulse Ox 12/15/20 17:49 98.2 F 84 18 131/86 95 12/15/20 16:36 97.5 F 82 17 123/102 H 97 - Problem List (1) H/O prostatectomy SNOMED Code(s): 786565620, 252047552 ICD Code: Z90.79 - ACQUIRED ABSENCE OF OTHER GENITAL ORGAN(S) Status: Acute Current Visit: Yes (2) Prostate cancer SNOMED Code(s): 881714758 ICD Code: C61 - MALIGNANT NEOPLASM OF PROSTATE Status: Acute Current Visit: Yes (3) Pneumonia SNOMED Code(s): 959192012 ICD Code: J18.9 - PNEUMONIA, UNSPECIFIED ORGANISM Status: Acute Current Visit: Yes Qualifiers: Pneumonia type: due to unspecified organism Laterality: right Lung location: lower lobe of lung Qualified Code(s): J18.9 - Pneumonia, unspecified organism Problem List Initiated/Reviewed/Updated: Yes Orders Last 24hrs: Active Orders 24 hr Category Date Time Status Admission Status [Patient Status] [ADT] Stat ADT 12/15/20 18:01 Active CORONAVIRUS COVID-19 KP [MOLEC] Stat Lab 12/15/20 17:50 Received CULTURE BLOOD [BC] Stat Lab 12/15/20 16:53 Received CULTURE BLOOD [BC] Stat Lab 12/15/20 17:00 Received Vancomycin 1 gm Med 12/15/20 18:03 Active Sodium Chloride 0.9% [Normal Saline (AdvBag)] 250 ml IV ONETIME Blood Culture x2 Reflex Set [OM.PC] Stat Oth 12/15/20 16:39 Ordered Medication Orders Vancomycin HCl 1 gm/ Sodium (Chloride) 250 mls @ 166 mls/hr IV ONETIME ONE Stop: 12/15/20 19:33 Assessment/Plan Comment:: Community-acquired pneumonia Vancomycin to dose, Zosyn 3.3 g every 8 hours DuoNeb as needed, incentive spirometry SCDs, Protonix, morphine 1 mg every 4 hour as needed Patient states he takes Xtandi as an injection and not PO formula. Patient also states he takes morphine and gabapentin twice daily for right upper leg and right hip pain, not tramadol as noted on the med rec. Gabapentin restarted, IV morphine as needed ordered, will resume other medications after verification. <Chadd Rodríguez - Last Filed: 12/18/20 12:41> H&P History of Present Illness - General Admit Problem/Dx: Admission Diagnosis/Problem Admission Diagnosis/Problem Pneumonia Exam - Vital Signs Vital Signs: Last Vital Signs Temp 35.9 C L 12/18/20 11:34 Pulse 96 12/18/20 11:34 Resp 16 12/18/20 11:34 BP 133/75 12/18/20 11:34 Pulse Ox 96 12/18/20 11:34 - Patient Data Lab Results Last 24 hrs: Laboratory Results - last 24 hr 12/18/20 12/18/20 12/18/20 Range/Units 05:10 05:10 11:50 WBC 21.02 H (4.0-11.0) K/uL RBC 3.44 L (4.50-5.90) M/uL Hgb 9.7 L (13.0-17.0) g/dL Hct 31.2 L (38.0-50.0) % MCV 90.7 (80.0-98.0) fL MCH 28.2 (27.0-32.0) pg MCHC 31.1 (31.0-37.0) g/dL RDW Std Deviation 63.5 H (28.0-62.0) fl RDW Coeff of Oscar 20 H (11.0-15.0) % Plt Count 292 (150-400) K/uL MPV 8.40 (7.40-12.00) fL Add Manual Diff YES Neutrophils % (Manual) 71 (48.0-80.0) % Band Neutrophils % 12 % Lymphocytes % (Manual) 3 L (16.0-40.0) % Monocytes % (Manual) 7 (0.0-15.0) % Eosinophils % (Manual) 3 (0.0-7.0) % Metamyelocytes % 2 % Myelocytes % 2 % Absolute Seg Neuts 14.9 H (1.4-5.7) Band Neutrophils # 2.5 Lymphocytes # (Manual) 0.6 (0.6-2.4) Monocytes # (Manual) 1.5 H (0.0-0.8) Eosinophils # (Manual) 0.6 (0.0-0.7) Absolute Metamyelocyte 0.4 Absolute Myelocytes 0.4 Sodium 138 (136-148) mmol/L Potassium 4.3 (3.5-5.1) mmol/L Chloride 105 (98-107) mmol/L Carbon Dioxide 25.3 (21.0-32.0) mmol/L BUN 7 (7.0-18.0) mg/dL Creatinine 1.0 (0.8-1.3) mg/dL Est Cr Clr Drug Dosing 59.82 mL/min Estimated GFR (MDRD) > 60.0 ml/min Glucose 105 (74-106) mg/dL Calcium 7.9 L (8.5-10.1) mg/dL Vancomycin Trough 10.3 H (5.0-10.0) ug/mL Result Diagrams: 12/18/20 05:10 12/18/20 05:10 [place] Results Last 24 hrs: Microbiology 12/15/20 16:53 Aerobic Blood Culture - Preliminary Blood - Venous NO GROWTH AFTER 2 DAYS Anaerobic Blood Culture - Preliminary NO GROWTH AFTER 2 DAYS 12/15/20 17:00 Aerobic Blood Culture - Preliminary Blood - Venous - Lab Draw NO GROWTH AFTER 2 DAYS Anaerobic Blood Culture - Preliminary NO GROWTH AFTER 2 DAYS Sepsis Event Note - Focused Exam Vital Signs: Vital Signs Temp Pulse Resp BP Pulse Ox 12/18/20 11:34 35.9 C L 96 16 133/75 96 12/18/20 07:52 36.5 C 65 18 146/76 H 95 12/18/20 04:32 36.6 C 63 16 132/78 95 12/18/20 01:03 36.5 C 67 16 133/76 95 Orders Last 24hrs: Active Orders 24 hr Category Date Time Status Ready for Discharge [RC] PER UNIT ROUTINE Care 12/18/20 11:24 Active levoFLOXacin [Levaquin] Med 12/17/20 20:00 Active 750 mg PO Q24H Medication Orders Acetaminophen (Acetaminophen 325 Mg Tab) 650 mg PO Q4H PRN PRN Reason: Pain (Mild 1-3)/fever Albuterol/Ipratropium (Albuterol/Ipratropium 3.0-0.5 Mg/3 Ml Neb Soln) 3 ml NEB Q4HRRT PRN PRN Reason: Shortness Of Breath/wheezing Guaifenesin (Guaifenesin 600 Mg Tab.Er) 600 mg PO BEDTIME PRN PRN Reason: Congestion Pantoprazole Sodium 40 mg/ (Sodium Chloride) 10 mls @ 300 mls/hr IV DAILY COUNTS INCLUDE 234 BEDS AT THE [facility] Last Admin: 12/18/20 09:29 Dose: 300 mls/hr Documented by: CARYN Cosigned by: LUCAS Infusion: 12/17/20 08:51 Dose: 300 mls/hr Documented by: CARYN Cosigned by: LUCAS Admin: 12/17/20 08:49 Dose: 300 mls/hr Documented by: Infusion: 12/16/20 09:05 Dose: 300 mls/hr Documented by: Admin: 12/16/20 09:03 Dose: 300 mls/hr Documented by: MABEL Levofloxacin (Levofloxacin 750 Mg Tab) 750 mg PO Q24H IGNACIO Last Admin: 12/17/20 19:45 Dose: 750 mg Documented by: BRUCE Morphine Sulfate (Morphine 15 Mg Tab) 15 mg PO Q8H PRN PRN Reason: Pain Last Admin: 12/17/20 18:10 Dose: 15 mg Documented by: Admin: 12/17/20 04:49 Dose: 15 mg Documented by: Admin: 12/16/20 20:10 Dose: 15 mg Documented by: Admin: 12/16/20 12:05 Dose: 15 mg Documented by: MABEL Morphine Sulfate (Morphine 15 Mg Tab.Er) 15 mg PO Q12H PRN PRN Reason: Pain Last Admin: 12/18/20 09:27 Dose: 15 mg Documented by: CARYN Cosigned by: LUCAS Admin: 12/17/20 21:20 Dose: 15 mg Documented by: BRUCE Assessment/Plan Comment:: I have seen and evaluated the patient and agree with the residents note unless specified in my note
[2020-12-15] MEDS ORDERED: Acetaminophen 325 MG Tab PO PRN (18:24)
[2020-12-15] MEDS ORDERED: Albuterol/Ipratropium 3.0-0.5 MG/3 ML Neb Soln NEB PRN (18:24)
[2020-12-15] MEDS ORDERED: Piperacillin/Tazobactam 4.5 GM in Sodium Chloride 0.9% 100 ML IV SCH (18:30)
[2020-12-15] MEDS ORDERED: traMADol 50 MG Tab PO PRN (19:22)
[2020-12-15] MEDS ORDERED: Aspirin 81 MG Tab.Chew PO SCH (19:30)
[2020-12-15] MEDS ORDERED: Morphine 2 MG/ML SYRINGE IVPUSH PRN (20:35)
[2020-12-15] MEDS ORDERED: Non-Formulary Medication 1 Each (Gabapentin 600 MG Tablet) PO SCH (21:00)
[2020-12-15] MEDS: Piperacillin/Tazobactam 3.375 GM in Sodium Chloride 0.9% 50 ML IV SCH (21:26)
[2020-12-15] MEDS ORDERED: Lactated Ringers 1,000 ML IV ONE (22:33)
[2020-12-16] MEDS: Piperacillin/Tazobactam 3.375 GM in Sodium Chloride 0.9% 50 ML IV SCH ×3 (03:58→20:03)
[2020-12-16 06:42] LABS: BLOOD UREA NITROGEN,BUN 11 mg/dL (7.0-18.0); CARBON DIOXIDE,CO2 26.2 mmol/L (21.0-32.0); CHLORIDE,CL 106 mmol/L (98-107); GLUCOSE RANDOM 101 mg/dL (74-106); POTASSIUM,K 4.3 mmol/L (3.5-5.1); SODIUM,NA 140 mmol/L (136-148)
[2020-12-16] MEDS ORDERED: Sertraline 50 MG Tab PO SCH (09:00)
[2020-12-16] MEDS: Pantoprazole 40 MG in Sodium Chloride 0.9% 10 ML IV SCH (09:03)
[2020-12-16] MEDS ORDERED: guaiFENesin 600 MG Tab.ER PO PRN (11:58)
[2020-12-16] MEDS: Morphine 15 MG Tab PO PRN ×2 (12:05→20:10)
[2020-12-16] MEDS: VANCOmycin 1.5 GM/300 ML 1.5 GM in Premix Bag 1 BAG IV SCH (12:54)
--- NOTE | 2020-12-16 13:43 | PCM.PN ---
<Shane Bo - Last Filed: 12/16/20 13:44> - General Info Date of Service: 12/16/20 Subjective Update: Patient denies chest pain, shortness of breath, wheezing. Patient denies fever, chills. Patient states he feels fine this morning. Denies joint pain, back pain. - Review of Systems General: Denies: Fever, Chills Pulmonary: Denies: Shortness of Breath, Cough Cardiovascular: Denies: Chest Pain, Palpitations Gastrointestinal: Denies: Abdominal Pain, Decreased Appetite, Nausea, Vomiting Neurological: Denies: Confusion, Dizziness, Headache Psychiatric: Denies: Confusion - Patient Data Vitals - Most Recent: Last Vital Signs Temp 96.4 F L 12/16/20 12:00 Pulse 60 12/16/20 12:00 Resp 22 H 12/16/20 12:00 BP 151/71 H 12/16/20 12:00 Pulse Ox 95 12/16/20 12:00 Weight - Most Recent: 93.44 kg I&O - Last 24 Hours: Intake & Output 12/15/20 12/16/20 12/16/20 22:59 06:59 14:59 Intake Total 200 Output Total 450 Balance -250 Lab Results Last 24 Hours: Laboratory Results - last 24 hr 12/15/20 12/15/20 12/15/20 Range/Units 16:46 16:53 16:53 WBC 30.43 H (4.0-11.0) K/uL RBC 3.34 L (4.50-5.90) M/uL Hgb 9.5 L (13.0-17.0) g/dL Hct 29.5 L (38.0-50.0) % MCV 88.3 (80.0-98.0) fL MCH 28.4 (27.0-32.0) pg MCHC 32.2 (31.0-37.0) g/dL RDW Std Deviation 63.8 H (28.0-62.0) fl RDW Coeff of Oscar 20 H (11.0-15.0) % Plt Count 304 (150-400) K/uL MPV 8.90 (7.40-12.00) fL Add Manual Diff YES Neutrophils % (Manual) 75 (48.0-80.0) % Band Neutrophils % 21 % Lymphocytes % (Manual) 1 L (16.0-40.0) % Monocytes % (Manual) 3 (0.0-15.0) % Eosinophils % (Manual) (0.0-7.0) % Nucleated RBC % 1.0 /100WBC Absolute Seg Neuts 22.8 H (1.4-5.7) Band Neutrophils # 6.4 Lymphocytes # (Manual) 0.3 L (0.6-2.4) Monocytes # (Manual) 0.9 H (0.0-0.8) Eosinophils # (Manual) (0.0-0.7) Nucleated RBCs # 0 K/uL Sodium 136 (136-148) mmol/L Potassium 4.6 (3.5-5.1) mmol/L Chloride 102 (98-107) mmol/L Carbon Dioxide 24.7 (21.0-32.0) mmol/L BUN 13 (7.0-18.0) mg/dL Creatinine 1.3 (0.8-1.3) mg/dL Est Cr Clr Drug Dosing 47.46 mL/min Estimated GFR (MDRD) 53.0 ml/min Glucose 182 H (74-106) mg/dL Lactic Acid (0.4-2.0) mmol/L Calcium 8.3 L (8.5-10.1) mg/dL Total Bilirubin 0.4 (0.2-1.0) mg/dL AST 24 (15-37) IU/L ALT 16 (14-63) IU/L Alkaline Phosphatase 343 H (46-116) U/L Total Protein 6.5 (6.4-8.2) g/dL Albumin 3.1 L (3.4-5.0) g/dL Globulin 3.4 (2.6-4.0) g/dL Albumin/Globulin Ratio 0.9 (0.9-1.6) Urine Color YELLOW Urine Appearance CLEAR Urine pH 6.0 (5.0-8.0) Ur Specific [place] 1.020 (1.001-1.035) Urine Protein NEGATIVE (NEGATIVE) mg/dL Urine Glucose (UA) NEGATIVE (NEGATIVE) mg/dL Urine Ketones NEGATIVE (NEGATIVE) mg/dL Urine Occult Blood NEGATIVE (NEGATIVE) Urine Nitrite NEGATIVE (NEGATIVE) Urine Bilirubin NEGATIVE (NEGATIVE) Urine Urobilinogen 2.0 H (<2.0) EU/dL Ur Leukocyte Esterase NEGATIVE (NEGATIVE) SARS-CoV-2 RNA (KP) (NEGATIVE) 12/15/20 12/15/20 12/16/20 Range/Units 17:00 17:50 05:35 WBC 16.71 H (4.0-11.0) K/uL RBC 3.17 L (4.50-5.90) M/uL Hgb 8.8 L (13.0-17.0) g/dL Hct 27.8 L (38.0-50.0) % MCV 87.7 (80.0-98.0) fL MCH 27.8 (27.0-32.0) pg MCHC 31.7 (31.0-37.0) g/dL RDW Std Deviation 64.9 H (28.0-62.0) fl RDW Coeff of Oscar 20 H (11.0-15.0) % Plt Count 295 (150-400) K/uL MPV 8.70 (7.40-12.00) fL Add Manual Diff YES Neutrophils % (Manual) 84 H (48.0-80.0) % Band Neutrophils % 3 % Lymphocytes % (Manual) 6 L (16.0-40.0) % Monocytes % (Manual) 6 (0.0-15.0) % Eosinophils % (Manual) 1 (0.0-7.0) % Nucleated RBC % 1.5 /100WBC Absolute Seg Neuts 14.0 H (1.4-5.7) Band Neutrophils # 0.5 Lymphocytes # (Manual) 1.0 (0.6-2.4) Monocytes # (Manual) 1.0 H (0.0-0.8) Eosinophils # (Manual) 0.2 (0.0-0.7) Nucleated RBCs # 0 K/uL Sodium (136-148) mmol/L Potassium (3.5-5.1) mmol/L Chloride (98-107) mmol/L Carbon Dioxide (21.0-32.0) mmol/L BUN (7.0-18.0) mg/dL Creatinine (0.8-1.3) mg/dL Est Cr Clr Drug Dosing mL/min Estimated GFR (MDRD) ml/min Glucose (74-106) mg/dL Lactic Acid 2.0 (0.4-2.0) mmol/L Calcium (8.5-10.1) mg/dL Total Bilirubin (0.2-1.0) mg/dL AST (15-37) IU/L ALT (14-63) IU/L Alkaline Phosphatase (46-116) U/L Total Protein (6.4-8.2) g/dL Albumin (3.4-5.0) g/dL Globulin (2.6-4.0) g/dL Albumin/Globulin Ratio (0.9-1.6) Urine Color Urine Appearance Urine pH (5.0-8.0) Ur Specific [place] (1.001-1.035) Urine Protein (NEGATIVE) mg/dL Urine Glucose (UA) (NEGATIVE) mg/dL Urine Ketones (NEGATIVE) mg/dL Urine Occult Blood (NEGATIVE) Urine Nitrite (NEGATIVE) Urine Bilirubin (NEGATIVE) Urine Urobilinogen (<2.0) EU/dL Ur Leukocyte Esterase (NEGATIVE) SARS-CoV-2 RNA (KP) NEGATIVE (NEGATIVE) 12/16/20 Range/Units 05:35 WBC (4.0-11.0) K/uL RBC (4.50-5.90) M/uL Hgb (13.0-17.0) g/dL Hct (38.0-50.0) % MCV (80.0-98.0) fL MCH (27.0-32.0) pg MCHC (31.0-37.0) g/dL RDW Std Deviation (28.0-62.0) fl RDW Coeff of Oscar (11.0-15.0) % Plt Count (150-400) K/uL MPV (7.40-12.00) fL Add Manual Diff Neutrophils % (Manual) (48.0-80.0) % Band Neutrophils % % Lymphocytes % (Manual) (16.0-40.0) % Monocytes % (Manual) (0.0-15.0) % Eosinophils % (Manual) (0.0-7.0) % Nucleated RBC % /100WBC Absolute Seg Neuts (1.4-5.7) Band Neutrophils # Lymphocytes # (Manual) (0.6-2.4) Monocytes # (Manual) (0.0-0.8) Eosinophils # (Manual) (0.0-0.7) Nucleated RBCs # K/uL Sodium 140 (136-148) mmol/L Potassium 4.3 (3.5-5.1) mmol/L Chloride 106 (98-107) mmol/L Carbon Dioxide 26.2 (21.0-32.0) mmol/L BUN 11 (7.0-18.0) mg/dL Creatinine 1.1 (0.8-1.3) mg/dL Est Cr Clr Drug Dosing 54.38 mL/min Estimated GFR (MDRD) > 60.0 ml/min Glucose 101 (74-106) mg/dL Lactic Acid (0.4-2.0) mmol/L Calcium 8.0 L (8.5-10.1) mg/dL Total Bilirubin 0.4 (0.2-1.0) mg/dL AST 16 (15-37) IU/L ALT 13 L (14-63) IU/L Alkaline Phosphatase 293 H (46-116) U/L Total Protein 5.7 L (6.4-8.2) g/dL Albumin 2.8 L (3.4-5.0) g/dL Globulin 2.9 (2.6-4.0) g/dL Albumin/Globulin Ratio 1.0 (0.9-1.6) Urine Color Urine Appearance Urine pH (5.0-8.0) Ur Specific [place] (1.001-1.035) Urine Protein (NEGATIVE) mg/dL Urine Glucose (UA) (NEGATIVE) mg/dL Urine Ketones (NEGATIVE) mg/dL Urine Occult Blood (NEGATIVE) Urine Nitrite (NEGATIVE) Urine Bilirubin (NEGATIVE) Urine Urobilinogen (<2.0) EU/dL Ur Leukocyte Esterase (NEGATIVE) SARS-CoV-2 RNA (KP) (NEGATIVE) Med Orders - Current: Current Medications Acetaminophen (Acetaminophen 325 Mg Tab) 650 mg PO Q4H PRN PRN Reason: Pain (Mild 1-3)/fever Albuterol/Ipratropium (Albuterol/Ipratropium 3.0-0.5 Mg/3 Ml Neb Soln) 3 ml NEB Q4HRRT PRN PRN Reason: Shortness Of Breath/wheezing Guaifenesin (Guaifenesin 600 Mg Tab.Er) 600 mg PO BEDTIME PRN PRN Reason: Congestion Pantoprazole Sodium 40 mg/ (Sodium Chloride) 10 mls @ 300 mls/hr IV DAILY [facility] Last Admin: 12/16/20 09:03 Dose: 300 mls/hr Documented by: Vancomycin HCl 1.5 gm/ Premix 300 mls @ 200 mls/hr IV Q24H [facility] Last Admin: 12/16/20 12:54 Dose: 200 mls/hr Documented by: Piperacillin Sod/Tazobactam (Sod 3.375 gm/ Sodium Chloride) 50 mls @ 100 mls/hr IV Q8H [facility] Last Admin: 12/16/20 12:07 Dose: 100 mls/hr Documented by: Morphine Sulfate (Morphine 15 Mg Tab) 15 mg PO Q8H PRN PRN Reason: Pain Last Admin: 12/16/20 12:05 Dose: 15 mg Documented by: Morphine Sulfate (Morphine 15 Mg Tab.Er) 15 mg PO Q12H PRN PRN Reason: Pain Vancomycin HCl (Pharmacy To Dose - Vancomycin) 1 dose .XX ASDIRECTED [facility] Discontinued Medications Vancomycin HCl 1 gm/ Sodium (Chloride) 250 mls @ 166 mls/hr IV ONETIME ONE Stop: 12/15/20 19:33 Last Admin: 12/15/20 18:22 Dose: 166 mls/hr Documented by: Piperacillin Sod/Tazobactam (Sod 4.5 gm/ Sodium Chloride) 100 mls @ 100 mls/hr IV Q8H [facility] Last Admin: 12/15/20 23:26 Dose: Not Given Documented by: Lactated Ringer's (Ringers, Lactated) 1,000 mls @ 999 mls/hr IV ONETIME ONE Stop: 12/15/20 23:33 Last Admin: 12/15/20 23:32 Dose: 999 mls/hr Documented by: Morphine Sulfate (Morphine 2 Mg/Ml Syringe) 1 mg IVPUSH Q4H PRN PRN Reason: Pain Non-Formulary Medication (Enzalutamide [Xtandi]) 160 mg PO DAILY [facility] Tramadol HCl (Tramadol 50 Mg Tab) 50 mg PO Q4HR PRN PRN Reason: Pain - Exam General: Alert, Oriented Lungs: Clear to Auscultation, Normal Respiratory Effort Cardiovascular: Regular Rate, Regular Rhythm GI/Abdominal Exam: Soft, Non-Tender Extremities: No Pedal Edema Psy/Mental Status: Alert - Patient Data Lab Results Last 24 hrs: Laboratory Results - last 24 hr 12/15/20 12/15/20 12/15/20 Range/Units 16:46 16:53 16:53 WBC 30.43 H (4.0-11.0) K/uL RBC 3.34 L (4.50-5.90) M/uL Hgb 9.5 L (13.0-17.0) g/dL Hct 29.5 L (38.0-50.0) % MCV 88.3 (80.0-98.0) fL MCH 28.4 (27.0-32.0) pg MCHC 32.2 (31.0-37.0) g/dL RDW Std Deviation 63.8 H (28.0-62.0) fl RDW Coeff of Oscar 20 H (11.0-15.0) % Plt Count 304 (150-400) K/uL MPV 8.90 (7.40-12.00) fL Add Manual Diff YES Neutrophils % (Manual) 75 (48.0-80.0) % Band Neutrophils % 21 % Lymphocytes % (Manual) 1 L (16.0-40.0) % Monocytes % (Manual) 3 (0.0-15.0) % Eosinophils % (Manual) (0.0-7.0) % Nucleated RBC % 1.0 /100WBC Absolute Seg Neuts 22.8 H (1.4-5.7) Band Neutrophils # 6.4 Lymphocytes # (Manual) 0.3 L (0.6-2.4) Monocytes # (Manual) 0.9 H (0.0-0.8) Eosinophils # (Manual) (0.0-0.7) Nucleated RBCs # 0 K/uL Sodium 136 (136-148) mmol/L Potassium 4.6 (3.5-5.1) mmol/L Chloride 102 (98-107) mmol/L Carbon Dioxide 24.7 (21.0-32.0) mmol/L BUN 13 (7.0-18.0) mg/dL Creatinine 1.3 (0.8-1.3) mg/dL Est Cr Clr Drug Dosing 47.46 mL/min Estimated GFR (MDRD) 53.0 ml/min Glucose 182 H (74-106) mg/dL Lactic Acid (0.4-2.0) mmol/L Calcium 8.3 L (8.5-10.1) mg/dL Total Bilirubin 0.4 (0.2-1.0) mg/dL AST 24 (15-37) IU/L ALT 16 (14-63) IU/L Alkaline Phosphatase 343 H (46-116) U/L Total Protein 6.5 (6.4-8.2) g/dL Albumin 3.1 L (3.4-5.0) g/dL Globulin 3.4 (2.6-4.0) g/dL Albumin/Globulin Ratio 0.9 (0.9-1.6) Urine Color YELLOW Urine Appearance CLEAR Urine pH 6.0 (5.0-8.0) Ur Specific [place] 1.020 (1.001-1.035) Urine Protein NEGATIVE (NEGATIVE) mg/dL Urine Glucose (UA) NEGATIVE (NEGATIVE) mg/dL Urine Ketones NEGATIVE (NEGATIVE) mg/dL Urine Occult Blood NEGATIVE (NEGATIVE) Urine Nitrite NEGATIVE (NEGATIVE) Urine Bilirubin NEGATIVE (NEGATIVE) Urine Urobilinogen 2.0 H (<2.0) EU/dL Ur Leukocyte Esterase NEGATIVE (NEGATIVE) SARS-CoV-2 RNA (KP) (NEGATIVE) 12/15/20 12/15/20 12/16/20 Range/Units 17:00 17:50 05:35 WBC 16.71 H (4.0-11.0) K/uL RBC 3.17 L (4.50-5.90) M/uL Hgb 8.8 L (13.0-17.0) g/dL Hct 27.8 L (38.0-50.0) % MCV 87.7 (80.0-98.0) fL MCH 27.8 (27.0-32.0) pg MCHC 31.7 (31.0-37.0) g/dL RDW Std Deviation 64.9 H (28.0-62.0) fl RDW Coeff of Oscar 20 H (11.0-15.0) % Plt Count 295 (150-400) K/uL MPV 8.70 (7.40-12.00) fL Add Manual Diff YES Neutrophils % (Manual) 84 H (48.0-80.0) % Band Neutrophils % 3 % Lymphocytes % (Manual) 6 L (16.0-40.0) % Monocytes % (Manual) 6 (0.0-15.0) % Eosinophils % (Manual) 1 (0.0-7.0) % Nucleated RBC % 1.5 /100WBC Absolute Seg Neuts 14.0 H (1.4-5.7) Band Neutrophils # 0.5 Lymphocytes # (Manual) 1.0 (0.6-2.4) Monocytes # (Manual) 1.0 H (0.0-0.8) Eosinophils # (Manual) 0.2 (0.0-0.7) Nucleated RBCs # 0 K/uL Sodium (136-148) mmol/L Potassium (3.5-5.1) mmol/L Chloride (98-107) mmol/L Carbon Dioxide (21.0-32.0) mmol/L BUN (7.0-18.0) mg/dL Creatinine (0.8-1.3) mg/dL Est Cr Clr Drug Dosing mL/min Estimated GFR (MDRD) ml/min Glucose (74-106) mg/dL Lactic Acid 2.0 (0.4-2.0) mmol/L Calcium (8.5-10.1) mg/dL Total Bilirubin (0.2-1.0) mg/dL AST (15-37) IU/L ALT (14-63) IU/L Alkaline Phosphatase (46-116) U/L Total Protein (6.4-8.2) g/dL Albumin (3.4-5.0) g/dL Globulin (2.6-4.0) g/dL Albumin/Globulin Ratio (0.9-1.6) Urine Color Urine Appearance Urine pH (5.0-8.0) Ur Specific [place] (1.001-1.035) Urine Protein (NEGATIVE) mg/dL Urine Glucose (UA) (NEGATIVE) mg/dL Urine Ketones (NEGATIVE) mg/dL Urine Occult Blood (NEGATIVE) Urine Nitrite (NEGATIVE) Urine Bilirubin (NEGATIVE) Urine Urobilinogen (<2.0) EU/dL Ur Leukocyte Esterase (NEGATIVE) SARS-CoV-2 RNA (KP) NEGATIVE (NEGATIVE) 12/16/20 Range/Units 05:35 WBC (4.0-11.0) K/uL RBC (4.50-5.90) M/uL Hgb (13.0-17.0) g/dL Hct (38.0-50.0) % MCV (80.0-98.0) fL MCH (27.0-32.0) pg MCHC (31.0-37.0) g/dL RDW Std Deviation (28.0-62.0) fl RDW Coeff of Oscar (11.0-15.0) % Plt Count (150-400) K/uL MPV (7.40-12.00) fL Add Manual Diff Neutrophils % (Manual) (48.0-80.0) % Band Neutrophils % % Lymphocytes % (Manual) (16.0-40.0) % Monocytes % (Manual) (0.0-15.0) % Eosinophils % (Manual) (0.0-7.0) % Nucleated RBC % /100WBC Absolute Seg Neuts (1.4-5.7) Band Neutrophils # Lymphocytes # (Manual) (0.6-2.4) Monocytes # (Manual) (0.0-0.8) Eosinophils # (Manual) (0.0-0.7) Nucleated RBCs # K/uL Sodium 140 (136-148) mmol/L Potassium 4.3 (3.5-5.1) mmol/L Chloride 106 (98-107) mmol/L Carbon Dioxide 26.2 (21.0-32.0) mmol/L BUN 11 (7.0-18.0) mg/dL Creatinine 1.1 (0.8-1.3) mg/dL Est Cr Clr Drug Dosing 54.38 mL/min Estimated GFR (MDRD) > 60.0 ml/min Glucose 101 (74-106) mg/dL Lactic Acid (0.4-2.0) mmol/L Calcium 8.0 L (8.5-10.1) mg/dL Total Bilirubin 0.4 (0.2-1.0) mg/dL AST 16 (15-37) IU/L ALT 13 L (14-63) IU/L Alkaline Phosphatase 293 H (46-116) U/L Total Protein 5.7 L (6.4-8.2) g/dL Albumin 2.8 L (3.4-5.0) g/dL Globulin 2.9 (2.6-4.0) g/dL Albumin/Globulin Ratio 1.0 (0.9-1.6) Urine Color Urine Appearance Urine pH (5.0-8.0) Ur Specific [place] (1.001-1.035) Urine Protein (NEGATIVE) mg/dL Urine Glucose (UA) (NEGATIVE) mg/dL Urine Ketones (NEGATIVE) mg/dL Urine Occult Blood (NEGATIVE) Urine Nitrite (NEGATIVE) Urine Bilirubin (NEGATIVE) Urine Urobilinogen (<2.0) EU/dL Ur Leukocyte Esterase (NEGATIVE) SARS-CoV-2 RNA (KP) (NEGATIVE) Result Diagrams: 12/16/20 05:35 12/16/20 05:35 Sepsis Event Note - Evaluation Sepsis Screening Result: No Definite Risk - Focused Exam Vital Signs: Vital Signs Temp Pulse Resp BP Pulse Ox 12/16/20 12:00 96.4 F L 60 22 H 151/71 H 95 12/16/20 08:15 96.1 F L 63 20 144/67 H 95 12/16/20 03:57 97.4 F 60 13 143/74 H 95 - Problem List & Annotations (1) H/O prostatectomy SNOMED Code(s): 344696835, 805876866 Code(s): Z90.79 - ACQUIRED ABSENCE OF OTHER GENITAL ORGAN(S) Status: Acute Current Visit: Yes (2) Prostate cancer SNOMED Code(s): 491360669 Code(s): C61 - MALIGNANT NEOPLASM OF PROSTATE Status: Acute Current Visit: Yes (3) Pneumonia SNOMED Code(s): 290914866 Code(s): J18.9 - PNEUMONIA, UNSPECIFIED ORGANISM Status: Acute Current Visit: Yes Qualifiers: Pneumonia type: due to unspecified organism Laterality: right Lung location: lower lobe of lung Qualified Code(s): J18.9 - Pneumonia, unspecified organism - Problem List Review Problem List Initiated/Reviewed/Updated: Yes - My Orders Last 24 Hours: My Active Orders 12/15/20 Dinner Mechanical Soft Diet [DIET] 12/15/20 18:24 Oxygen Therapy [RC] PRN VTE/DVT Education [RC] PER UNIT ROUTINE Vital Signs [RC] Q4H Acetaminophen [TylenoL] 650 mg PO Q4H PRN Albuterol/Ipratropium [DuoNeb 3.0-0.5 MG/3 ML] 3 ml NEB Q4HRRT PRN 12/15/20 18:25 Sequential Compression Device [OM.PC] Per Unit Routine 12/15/20 18:26 Antiembolic Devices [RC] PER UNIT ROUTINE RT Aerosol Therapy [RC] ASDIRECTED 12/15/20 18:45 Pharmacy to Dose - Vancomycin 1 dose .XX ASDIRECTED 12/15/20 20:00 Piperacillin/Tazobactam [Piperacil-Tazobact] 3.375 gm Sodium Chloride 0.9% [Normal Saline] 50 ml IV Q8H 12/16/20 09:00 Pantoprazole [ProTONIX IV] 40 mg Sodium Chloride 0.9% [Normal Saline] 10 ml IV DAILY 12/16/20 11:49 Morphine 15 mg PO Q8H PRN Morphine [MS Contin] 15 mg PO Q12H PRN 12/16/20 11:58 guaiFENesin [Mucinex] 600 mg PO BEDTIME PRN 12/16/20 12:00 VANCOmycin 1.5 GM/300 ML 1.5 gm Premix Bag 1 bag IV Q24H - Plan Plan:: Community-acquired pneumonia Vancomycin to dose, Zosyn 3.3 g every 8 hours DuoNeb as needed, incentive spirometry SCDs, Protonix, morphine 15 mg PO every 8 hours, 15 mg p.o. 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 Pending discharge tomorrow based on AM physical exam findings, AM labs = <Chadd Rodríguez - Last Filed: 12/18/20 12:16> - Patient Data Vitals - Most Recent: Last Vital Signs Temp 35.9 C L 12/18/20 11:34 Pulse 96 12/18/20 11:34 Resp 16 12/18/20 11:34 BP 133/75 12/18/20 11:34 Pulse Ox 96 12/18/20 11:34 I&O - Last 24 Hours: Intake & Output 12/17/20 12/18/20 12/18/20 22:59 06:59 14:59 Intake Total 1400 550 210 Output Total 750 710 Balance 650 -160 210 Lab Results Last 24 Hours: Laboratory Results - last 24 hr 12/18/20 12/18/20 Range/Units 05:10 05:10 WBC 21.02 H (4.0-11.0) K/uL RBC 3.44 L (4.50-5.90) M/uL Hgb 9.7 L (13.0-17.0) g/dL Hct 31.2 L (38.0-50.0) % MCV 90.7 (80.0-98.0) fL MCH 28.2 (27.0-32.0) pg MCHC 31.1 (31.0-37.0) g/dL RDW Std Deviation 63.5 H (28.0-62.0) fl RDW Coeff of [place] 20 H (11.0-15.0) % Plt Count 292 (150-400) K/uL MPV 8.40 (7.40-12.00) fL Add Manual Diff YES Neutrophils % (Manual) 71 (48.0-80.0) % Band Neutrophils % 12 % Lymphocytes % (Manual) 3 L (16.0-40.0) % Monocytes % (Manual) 7 (0.0-15.0) % Eosinophils % (Manual) 3 (0.0-7.0) % Metamyelocytes % 2 % Myelocytes % 2 % Absolute Seg Neuts 14.9 H (1.4-5.7) Band Neutrophils # 2.5 Lymphocytes # (Manual) 0.6 (0.6-2.4) Monocytes # (Manual) 1.5 H (0.0-0.8) Eosinophils # (Manual) 0.6 (0.0-0.7) Absolute Metamyelocyte 0.4 Absolute Myelocytes 0.4 Sodium 138 (136-148) mmol/L Potassium 4.3 (3.5-5.1) mmol/L Chloride 105 (98-107) mmol/L Carbon Dioxide 25.3 (21.0-32.0) mmol/L BUN 7 (7.0-18.0) mg/dL Creatinine 1.0 (0.8-1.3) mg/dL Est Cr Clr Drug Dosing 59.82 mL/min Estimated GFR (MDRD) > 60.0 ml/min Glucose 105 (74-106) mg/dL Calcium 7.9 L (8.5-10.1) mg/dL [place] Results Last 24 Hours: Microbiology 12/15/20 16:53 Aerobic Blood Culture - Preliminary Blood - Venous NO GROWTH AFTER 2 DAYS Anaerobic Blood Culture - Preliminary NO GROWTH AFTER 2 DAYS 12/15/20 17:00 Aerobic Blood Culture - Preliminary Blood - Venous - Lab Draw NO GROWTH AFTER 2 DAYS Anaerobic Blood Culture - Preliminary NO GROWTH AFTER 2 DAYS Med Orders - Current: Current Medications Acetaminophen (Acetaminophen 325 Mg Tab) 650 mg PO Q4H PRN PRN Reason: Pain (Mild 1-3)/fever Albuterol/Ipratropium (Albuterol/Ipratropium 3.0-0.5 Mg/3 Ml Neb Soln) 3 ml NEB Q4HRRT PRN PRN Reason: Shortness Of Breath/wheezing Guaifenesin (Guaifenesin 600 Mg Tab.Er) 600 mg PO BEDTIME PRN PRN Reason: Congestion Pantoprazole Sodium 40 mg/ (Sodium Chloride) 10 mls @ 300 mls/hr IV DAILY [facility] Last Admin: 12/18/20 09:29 Dose: 300 mls/hr Documented by: Levofloxacin (Levofloxacin 750 Mg Tab) 750 mg PO Q24H [facility] Last Admin: 12/17/20 19:45 Dose: 750 mg Documented by: Morphine Sulfate (Morphine 15 Mg Tab) 15 mg PO Q8H PRN PRN Reason: Pain Last Admin: 12/17/20 18:10 Dose: 15 mg Documented by: Morphine Sulfate (Morphine 15 Mg Tab.Er) 15 mg PO Q12H PRN PRN Reason: Pain Last Admin: 12/18/20 09:27 Dose: 15 mg Documented by: Discontinued Medications Docusate Sodium (Docusate Sodium 100 Mg Cap) 100 mg PO ONETIME ONE Stop: 12/18/20 11:47 Vancomycin HCl 1 gm/ Sodium (Chloride) 250 mls @ 166 mls/hr IV ONETIME ONE Stop: 12/15/20 19:33 Last Admin: 12/15/20 18:22 Dose: 166 mls/hr Documented by: Piperacillin Sod/Tazobactam (Sod 4.5 gm/ Sodium Chloride) 100 mls @ 100 mls/hr IV Q8H [facility] Last Admin: 12/15/20 23:26 Dose: Not Given Documented by: Vancomycin HCl 1.5 gm/ Premix 300 mls @ 200 mls/hr IV Q24H [facility] Last Admin: 12/17/20 12:00 Dose: 200 mls/hr Documented by: Piperacillin Sod/Tazobactam (Sod 3.375 gm/ Sodium Chloride) 50 mls @ 100 mls/hr IV Q8H [facility] Last Admin: 12/17/20 11:07 Dose: 100 mls/hr Documented by: Lactated Ringer's (Ringers, Lactated) 1,000 mls @ 999 mls/hr IV ONETIME ONE Stop: 12/15/20 23:33 Last Admin: 12/15/20 23:32 Dose: 999 mls/hr Documented by: Morphine Sulfate (Morphine 2 Mg/Ml Syringe) 1 mg IVPUSH Q4H PRN PRN Reason: Pain Non-Formulary Medication (Enzalutamide [Xtandi]) 160 mg PO DAILY [facility] Tramadol HCl (Tramadol 50 Mg Tab) 50 mg PO Q4HR PRN PRN Reason: Pain Vancomycin HCl (Pharmacy To Dose - Vancomycin) 1 dose .XX ASDIRECTED [facility] - Patient Data Lab Results Last 24 hrs: Laboratory Results - last 24 hr 12/18/20 12/18/20 Range/Units 05:10 05:10 WBC 21.02 H (4.0-11.0) K/uL RBC 3.44 L (4.50-5.90) M/uL Hgb 9.7 L (13.0-17.0) g/dL Hct 31.2 L (38.0-50.0) % MCV 90.7 (80.0-98.0) fL MCH 28.2 (27.0-32.0) pg MCHC 31.1 (31.0-37.0) g/dL RDW Std Deviation 63.5 H (28.0-62.0) fl RDW Coeff of Oscar 20 H (11.0-15.0) % Plt Count 292 (150-400) K/uL MPV 8.40 (7.40-12.00) fL Add Manual Diff YES Neutrophils % (Manual) 71 (48.0-80.0) % Band Neutrophils % 12 % Lymphocytes % (Manual) 3 L (16.0-40.0) % Monocytes % (Manual) 7 (0.0-15.0) % Eosinophils % (Manual) 3 (0.0-7.0) % Metamyelocytes % 2 % Myelocytes % 2 % Absolute Seg Neuts 14.9 H (1.4-5.7) Band Neutrophils # 2.5 Lymphocytes # (Manual) 0.6 (0.6-2.4) Monocytes # (Manual) 1.5 H (0.0-0.8) Eosinophils # (Manual) 0.6 (0.0-0.7) Absolute Metamyelocyte 0.4 Absolute Myelocytes 0.4 Sodium 138 (136-148) mmol/L Potassium 4.3 (3.5-5.1) mmol/L Chloride 105 (98-107) mmol/L Carbon Dioxide 25.3 (21.0-32.0) mmol/L BUN 7 (7.0-18.0) mg/dL Creatinine 1.0 (0.8-1.3) mg/dL Est Cr Clr Drug Dosing 59.82 mL/min Estimated GFR (MDRD) > 60.0 ml/min Glucose 105 (74-106) mg/dL Calcium 7.9 L (8.5-10.1) mg/dL Result Diagrams: 12/18/20 05:10 12/18/20 05:10 [place] Results Last 24 hrs: Microbiology 12/15/20 16:53 Aerobic Blood Culture - Preliminary Blood - Venous NO GROWTH AFTER 2 DAYS Anaerobic Blood Culture - Preliminary NO GROWTH AFTER 2 DAYS 12/15/20 17:00 Aerobic Blood Culture - Preliminary Blood - Venous - Lab Draw NO GROWTH AFTER 2 DAYS Anaerobic Blood Culture - Preliminary NO GROWTH AFTER 2 DAYS Sepsis Event Note - Focused Exam Vital Signs: Vital Signs Temp Pulse Resp BP Pulse Ox 12/18/20 11:34 35.9 C L 96 16 133/75 96 12/18/20 07:52 36.5 C 65 18 146/76 H 95 12/18/20 04:32 36.6 C 63 16 132/78 95 12/18/20 01:03 36.5 C 67 16 133/76 95 - Plan Plan:: I have seen and evaluated the patient and agree with the residents note unless specified in my note
[2020-12-17] MEDS: Piperacillin/Tazobactam 3.375 GM in Sodium Chloride 0.9% 50 ML IV SCH ×2 (04:45→11:07)
[2020-12-17] MEDS: Morphine 15 MG Tab PO PRN ×2 (04:49→18:10)
[2020-12-17 06:14] LABS: BLOOD UREA NITROGEN,BUN 9 mg/dL (7.0-18.0); CARBON DIOXIDE,CO2 27.3 mmol/L (21.0-32.0); CHLORIDE,CL 105 mmol/L (98-107); GLUCOSE RANDOM 95 mg/dL (74-106); POTASSIUM,K 4.5 mmol/L (3.5-5.1); SODIUM,NA 141 mmol/L (136-148)
[2020-12-17] MEDS: Pantoprazole 40 MG in Sodium Chloride 0.9% 10 ML IV SCH (08:49)
--- NOTE | 2020-12-17 11:54 | CR ---
Indication: Pneumonia. Technique: Chest 1 view. Comparison: 12/15/2020. Findings/Impression: Cardiovascular and mediastinum: Heart size and vasculature are normal in caliber and appearance. Lungs and pleural space: Right lower lobe infiltrate persists but appears slightly improved. Remainder of the lungs and pleural spaces are clear. No pneumothorax. No new abnormality. Bones and soft tissues: No acute findings. Dictated by Ant Morris MD @ 12/17/2020 11:52:02 AM (Electronically Signed)
[2020-12-17] MEDS: VANCOmycin 1.5 GM/300 ML 1.5 GM in Premix Bag 1 BAG IV SCH (12:00)
--- NOTE | 2020-12-17 18:10 | PCM.PN ---
<Shane Bo - Last Filed: 12/17/20 18:05> - General Info Date of Service: 12/17/20 Subjective Update: Patient states he feels fine this morning. Denies fever, chills, nausea, vomiting, chest pain, shortness of breath, dizziness, headaches. Patient states he would like to go home but understands if he cannot do to increased white blood cell count overnight. - Review of Systems General: Denies: Fever, Chills Pulmonary: Denies: Shortness of Breath, Cough Cardiovascular: Denies: Chest Pain, Palpitations, Orthopnea, Edema Gastrointestinal: Denies: Abdominal Pain, Decreased Appetite, Nausea, Vomiting Neurological: Denies: Confusion, Dizziness, Headache Psychiatric: Denies: Confusion - Patient Data Vitals - Most Recent: Last Vital Signs Temp 97.1 F 12/17/20 15:00 Pulse 64 12/17/20 15:00 Resp 16 12/17/20 15:00 BP 147/70 H 12/17/20 15:00 Pulse Ox 96 12/17/20 15:00 Weight - Most Recent: 93.44 kg I&O - Last 24 Hours: Intake & Output 12/17/20 12/17/20 12/17/20 06:59 14:59 22:59 Intake Total 1100 1400 Output Total 1500 750 Balance -400 650 Lab Results Last 24 Hours: Laboratory Results - last 24 hr 12/17/20 12/17/20 Range/Units 05:05 05:05 WBC 19.18 H (4.0-11.0) K/uL RBC 3.44 L (4.50-5.90) M/uL Hgb 9.6 L (13.0-17.0) g/dL Hct 30.8 L (38.0-50.0) % MCV 89.5 (80.0-98.0) fL MCH 27.9 (27.0-32.0) pg MCHC 31.2 (31.0-37.0) g/dL RDW Std Deviation 66.3 H (28.0-62.0) fl RDW Coeff of Oscar 20 H (11.0-15.0) % Plt Count 316 (150-400) K/uL MPV 8.70 (7.40-12.00) fL Add Manual Diff YES Neutrophils % (Manual) 67 (48.0-80.0) % Band Neutrophils % 20 % Lymphocytes % (Manual) 7 L (16.0-40.0) % Monocytes % (Manual) 4 (0.0-15.0) % Eosinophils % (Manual) 2 (0.0-7.0) % Nucleated RBC % 1.5 /100WBC Absolute Seg Neuts 12.9 H (1.4-5.7) Band Neutrophils # 3.8 Lymphocytes # (Manual) 1.3 (0.6-2.4) Monocytes # (Manual) 0.8 (0.0-0.8) Eosinophils # (Manual) 0.4 (0.0-0.7) Nucleated RBCs # 0 K/uL Sodium 141 (136-148) mmol/L Potassium 4.5 (3.5-5.1) mmol/L Chloride 105 (98-107) mmol/L Carbon Dioxide 27.3 (21.0-32.0) mmol/L BUN 9 (7.0-18.0) mg/dL Creatinine 1.1 (0.8-1.3) mg/dL Est Cr Clr Drug Dosing 54.38 mL/min Estimated GFR (MDRD) > 60.0 ml/min Glucose 95 (74-106) mg/dL Calcium 8.0 L (8.5-10.1) mg/dL Bac[facility] Results Last 24 Hours: Microbiology 12/15/20 16:53 Aerobic Blood Culture - Preliminary Blood - Venous NO GROWTH AFTER 2 DAYS Anaerobic Blood Culture - Preliminary NO GROWTH AFTER 2 DAYS 12/15/20 17:00 Aerobic Blood Culture - Preliminary Blood - Venous - Lab Draw NO GROWTH AFTER 2 DAYS Anaerobic Blood Culture - Preliminary NO GROWTH AFTER 2 DAYS Med Orders - Current: Current Medications Acetaminophen (Acetaminophen 325 Mg Tab) 650 mg PO Q4H PRN PRN Reason: Pain (Mild 1-3)/fever Albuterol/Ipratropium (Albuterol/Ipratropium 3.0-0.5 Mg/3 Ml Neb Soln) 3 ml NEB Q4HRRT PRN PRN Reason: Shortness Of Breath/wheezing Guaifenesin (Guaifenesin 600 Mg Tab.Er) 600 mg PO BEDTIME PRN PRN Reason: Congestion Pantoprazole Sodium 40 mg/ (Sodium Chloride) 10 mls @ 300 mls/hr IV DAILY IGNACIO Last Admin: 12/17/20 08:49 Dose: 300 mls/hr Documented by: Levofloxacin (Levofloxacin 750 Mg Tab) 750 mg PO Q24H [facility] Morphine Sulfate (Morphine 15 Mg Tab) 15 mg PO Q8H PRN PRN Reason: Pain Last Admin: 12/17/20 04:49 Dose: 15 mg Documented by: Morphine Sulfate (Morphine 15 Mg Tab.Er) 15 mg PO Q12H PRN PRN Reason: Pain Discontinued Medications Vancomycin HCl 1 gm/ Sodium (Chloride) 250 mls @ 166 mls/hr IV ONETIME ONE Stop: 12/15/20 19:33 Last Admin: 12/15/20 18:22 Dose: 166 mls/hr Documented by: Piperacillin Sod/Tazobactam (Sod 4.5 gm/ Sodium Chloride) 100 mls @ 100 mls/hr IV Q8H [facility] Last Admin: 12/15/20 23:26 Dose: Not Given Documented by: Vancomycin HCl 1.5 gm/ Premix 300 mls @ 200 mls/hr IV Q24H [facility] Last Admin: 12/17/20 12:00 Dose: 200 mls/hr Documented by: Piperacillin Sod/Tazobactam (Sod 3.375 gm/ Sodium Chloride) 50 mls @ 100 mls/hr IV Q8H [facility] Last Admin: 12/17/20 11:07 Dose: 100 mls/hr Documented by: Lactated Ringer's (Ringers, Lactated) 1,000 mls @ 999 mls/hr IV ONETIME ONE Stop: 12/15/20 23:33 Last Admin: 12/15/20 23:32 Dose: 999 mls/hr Documented by: Morphine Sulfate (Morphine 2 Mg/Ml Syringe) 1 mg IVPUSH Q4H PRN PRN Reason: Pain Non-Formulary Medication (Enzalutamide [Xtandi]) 160 mg PO DAILY [facility] Tramadol HCl (Tramadol 50 Mg Tab) 50 mg PO Q4HR PRN PRN Reason: Pain Vancomycin HCl (Pharmacy To Dose - Vancomycin) 1 dose .XX ASDIRECTED [facility] - Exam General: Alert, Oriented Neck: Supple Lungs: Clear to Auscultation, Crackles (fine, r lower lobe). No: Decreased Breath Sounds Cardiovascular: Regular Rate, Regular Rhythm GI/Abdominal Exam: Soft, Non-Tender Extremities: No Pedal Edema Psy/Mental Status: Alert - Patient Data Lab Results Last 24 hrs: Laboratory Results - last 24 hr 12/17/20 12/17/20 Range/Units 05:05 05:05 WBC 19.18 H (4.0-11.0) K/uL RBC 3.44 L (4.50-5.90) M/uL Hgb 9.6 L (13.0-17.0) g/dL Hct 30.8 L (38.0-50.0) % MCV 89.5 (80.0-98.0) fL MCH 27.9 (27.0-32.0) pg MCHC 31.2 (31.0-37.0) g/dL RDW Std Deviation 66.3 H (28.0-62.0) fl RDW Coeff of Oscar 20 H (11.0-15.0) % Plt Count 316 (150-400) K/uL MPV 8.70 (7.40-12.00) fL Add Manual Diff YES Neutrophils % (Manual) 67 (48.0-80.0) % Band Neutrophils % 20 % Lymphocytes % (Manual) 7 L (16.0-40.0) % Monocytes % (Manual) 4 (0.0-15.0) % Eosinophils % (Manual) 2 (0.0-7.0) % Nucleated RBC % 1.5 /100WBC Absolute Seg Neuts 12.9 H (1.4-5.7) Band Neutrophils # 3.8 Lymphocytes # (Manual) 1.3 (0.6-2.4) Monocytes # (Manual) 0.8 (0.0-0.8) Eosinophils # (Manual) 0.4 (0.0-0.7) Nucleated RBCs # 0 K/uL Sodium 141 (136-148) mmol/L Potassium 4.5 (3.5-5.1) mmol/L Chloride 105 (98-107) mmol/L Carbon Dioxide 27.3 (21.0-32.0) mmol/L BUN 9 (7.0-18.0) mg/dL Creatinine 1.1 (0.8-1.3) mg/dL Est Cr Clr Drug Dosing 54.38 mL/min Estimated GFR (MDRD) > 60.0 ml/min Glucose 95 (74-106) mg/dL Calcium 8.0 L (8.5-10.1) mg/dL Result Diagrams: 12/17/20 05:05 12/17/20 05:05 Bacilio Results Last 24 hrs: Microbiology 12/15/20 16:53 Aerobic Blood Culture - Preliminary Blood - Venous NO GROWTH AFTER 2 DAYS Anaerobic Blood Culture - Preliminary NO GROWTH AFTER 2 DAYS 12/15/20 17:00 Aerobic Blood Culture - Preliminary Blood - Venous - Lab Draw NO GROWTH AFTER 2 DAYS Anaerobic Blood Culture - Preliminary NO GROWTH AFTER 2 DAYS Sepsis Event Note - Evaluation Sepsis Screening Result: No Definite Risk - Focused Exam Vital Signs: Vital Signs Temp Pulse Resp BP Pulse Ox 12/17/20 15:00 97.1 F 64 16 147/70 H 96 12/17/20 11:24 97.5 F 67 16 133/72 96 12/17/20 08:00 97.1 F 66 16 141/75 H 95 - Problem List & Annotations (1) H/O prostatectomy SNOMED Code(s): 740789401, 802171693 Code(s): Z90.79 - ACQUIRED ABSENCE OF OTHER GENITAL ORGAN(S) Status: Acute Current Visit: Yes (2) Prostate cancer SNOMED Code(s): 211786742 Code(s): C61 - MALIGNANT NEOPLASM OF PROSTATE Status: Acute Current Visit: Yes (3) Pneumonia SNOMED Code(s): 658771502 Code(s): J18.9 - PNEUMONIA, UNSPECIFIED ORGANISM Status: Acute Current Visit: Yes Qualifiers: Pneumonia type: due to unspecified organism Laterality: right Lung location: lower lobe of lung Qualified Code(s): J18.9 - Pneumonia, unspecified organism - Problem List Review Problem List Initiated/Reviewed/Updated: Yes - My Orders Last 24 Hours: My Active Orders 12/17/20 20:00 levoFLOXacin [Levaquin] 750 mg PO Q24H - Plan Plan:: Community-acquired pneumonia Patient to receive vancomycin dose and second dose of Zosyn this afternoon. Will start patient on Levaquin 750 mg q24hr this evening as patient is set to be discharged home tomorrow Repeat chest x-ray performed with impression of, Right lower lobe infiltrate persists but appears slightly improved, no new abnormality DuoNeb as needed, incentive spirometry SCDs, Protonix, morphine 15 mg PO every 8 hours, 15 mg p.o. 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 = <Chadd Rodríguez - Last Filed: 12/18/20 12:08> - Patient Data Vitals - Most Recent: Last Vital Signs Temp 35.9 C L 12/18/20 11:34 Pulse 96 12/18/20 11:34 Resp 16 12/18/20 11:34 BP 133/75 12/18/20 11:34 Pulse Ox 96 12/18/20 11:34 I&O - Last 24 Hours: Intake & Output 12/17/20 12/18/20 12/18/20 22:59 06:59 14:59 Intake Total 1400 550 210 Output Total 750 710 Balance 650 -160 210 Lab Results Last 24 Hours: Laboratory Results - last 24 hr 12/18/20 12/18/20 Range/Units 05:10 05:10 WBC 21.02 H (4.0-11.0) K/uL RBC 3.44 L (4.50-5.90) M/uL Hgb 9.7 L (13.0-17.0) g/dL Hct 31.2 L (38.0-50.0) % MCV 90.7 (80.0-98.0) fL MCH 28.2 (27.0-32.0) pg MCHC 31.1 (31.0-37.0) g/dL RDW Std Deviation 63.5 H (28.0-62.0) fl RDW Coeff of Oscar 20 H (11.0-15.0) % Plt Count 292 (150-400) K/uL MPV 8.40 (7.40-12.00) fL Add Manual Diff YES Neutrophils % (Manual) 71 (48.0-80.0) % Band Neutrophils % 12 % Lymphocytes % (Manual) 3 L (16.0-40.0) % Monocytes % (Manual) 7 (0.0-15.0) % Eosinophils % (Manual) 3 (0.0-7.0) % Metamyelocytes % 2 % Myelocytes % 2 % Absolute Seg Neuts 14.9 H (1.4-5.7) Band Neutrophils # 2.5 Lymphocytes # (Manual) 0.6 (0.6-2.4) Monocytes # (Manual) 1.5 H (0.0-0.8) Eosinophils # (Manual) 0.6 (0.0-0.7) Absolute Metamyelocyte 0.4 Absolute Myelocytes 0.4 Sodium 138 (136-148) mmol/L Potassium 4.3 (3.5-5.1) mmol/L Chloride 105 (98-107) mmol/L Carbon Dioxide 25.3 (21.0-32.0) mmol/L BUN 7 (7.0-18.0) mg/dL Creatinine 1.0 (0.8-1.3) mg/dL Est Cr Clr Drug Dosing 59.82 mL/min Estimated GFR (MDRD) > 60.0 ml/min Glucose 105 (74-106) mg/dL Calcium 7.9 L (8.5-10.1) mg/dL [facility] Results Last 24 Hours: Microbiology 12/15/20 16:53 Aerobic Blood Culture - Preliminary Blood - Venous NO GROWTH AFTER 2 DAYS Anaerobic Blood Culture - Preliminary NO GROWTH AFTER 2 DAYS 12/15/20 17:00 Aerobic Blood Culture - Preliminary Blood - Venous - Lab Draw NO GROWTH AFTER 2 DAYS Anaerobic Blood Culture - Preliminary NO GROWTH AFTER 2 DAYS Med Orders - Current: Current Medications Acetaminophen (Acetaminophen 325 Mg Tab) 650 mg PO Q4H PRN PRN Reason: Pain (Mild 1-3)/fever Albuterol/Ipratropium (Albuterol/Ipratropium 3.0-0.5 Mg/3 Ml Neb Soln) 3 ml NEB Q4HRRT PRN PRN Reason: Shortness Of Breath/wheezing Guaifenesin (Guaifenesin 600 Mg Tab.Er) 600 mg PO BEDTIME PRN PRN Reason: Congestion Pantoprazole Sodium 40 mg/ (Sodium Chloride) 10 mls @ 300 mls/hr IV DAILY IGNACIO Last Admin: 12/18/20 09:29 Dose: 300 mls/hr Documented by: Levofloxacin (Levofloxacin 750 Mg Tab) 750 mg PO Q24H [facility]NA[facility] Last Admin: 12/17/20 19:45 Dose: 750 mg Documented by: Morphine Sulfate (Morphine 15 Mg Tab) 15 mg PO Q8H PRN PRN Reason: Pain Last Admin: 12/17/20 18:10 Dose: 15 mg Documented by: Morphine Sulfate (Morphine 15 Mg Tab.Er) 15 mg PO Q12H PRN PRN Reason: Pain Last Admin: 12/18/20 09:27 Dose: 15 mg Documented by: Discontinued Medications Docusate Sodium (Docusate Sodium 100 Mg Cap) 100 mg PO ONETIME ONE Stop: 12/18/20 11:47 Vancomycin HCl 1 gm/ Sodium (Chloride) 250 mls @ 166 mls/hr IV ONETIME ONE Stop: 12/15/20 19:33 Last Admin: 12/15/20 18:22 Dose: 166 mls/hr Documented by: Piperacillin Sod/Tazobactam (Sod 4.5 gm/ Sodium Chloride) 100 mls @ 100 mls/hr IV Q8H [facility] Last Admin: 12/15/20 23:26 Dose: Not Given Documented by: Vancomycin HCl 1.5 gm/ Premix 300 mls @ 200 mls/hr IV Q24H [facility] Last Admin: 12/17/20 12:00 Dose: 200 mls/hr Documented by: Piperacillin Sod/Tazobactam (Sod 3.375 gm/ Sodium Chloride) 50 mls @ 100 mls/hr IV Q8H [facility] Last Admin: 12/17/20 11:07 Dose: 100 mls/hr Documented by: Lactated Ringer's (Ringers, Lactated) 1,000 mls @ 999 mls/hr IV ONETIME ONE Stop: 12/15/20 23:33 Last Admin: 12/15/20 23:32 Dose: 999 mls/hr Documented by: Morphine Sulfate (Morphine 2 Mg/Ml Syringe) 1 mg IVPUSH Q4H PRN PRN Reason: Pain Non-Formulary Medication (Enzalutamide [Xtandi]) 160 mg PO DAILY [facility] Tramadol HCl (Tramadol 50 Mg Tab) 50 mg PO Q4HR PRN PRN Reason: Pain Vancomycin HCl (Pharmacy To Dose - Vancomycin) 1 dose .XX ASDIRECTED [facility] - Patient Data Lab Results Last 24 hrs: Laboratory Results - last 24 hr 12/18/20 12/18/20 Range/Units 05:10 05:10 WBC 21.02 H (4.0-11.0) K/uL RBC 3.44 L (4.50-5.90) M/uL Hgb 9.7 L (13.0-17.0) g/dL Hct 31.2 L (38.0-50.0) % MCV 90.7 (80.0-98.0) fL MCH 28.2 (27.0-32.0) pg MCHC 31.1 (31.0-37.0) g/dL RDW Std Deviation 63.5 H (28.0-62.0) fl RDW Coeff of Oscar 20 H (11.0-15.0) % Plt Count 292 (150-400) K/uL MPV 8.40 (7.40-12.00) fL Add Manual Diff YES Neutrophils % (Manual) 71 (48.0-80.0) % Band Neutrophils % 12 % Lymphocytes % (Manual) 3 L (16.0-40.0) % Monocytes % (Manual) 7 (0.0-15.0) % Eosinophils % (Manual) 3 (0.0-7.0) % Metamyelocytes % 2 % Myelocytes % 2 % Absolute Seg Neuts 14.9 H (1.4-5.7) Band Neutrophils # 2.5 Lymphocytes # (Manual) 0.6 (0.6-2.4) Monocytes # (Manual) 1.5 H (0.0-0.8) Eosinophils # (Manual) 0.6 (0.0-0.7) Absolute Metamyelocyte 0.4 Absolute Myelocytes 0.4 Sodium 138 (136-148) mmol/L Potassium 4.3 (3.5-5.1) mmol/L Chloride 105 (98-107) mmol/L Carbon Dioxide 25.3 (21.0-32.0) mmol/L BUN 7 (7.0-18.0) mg/dL Creatinine 1.0 (0.8-1.3) mg/dL Est Cr Clr Drug Dosing 59.82 mL/min Estimated GFR (MDRD) > 60.0 ml/min Glucose 105 (74-106) mg/dL Calcium 7.9 L (8.5-10.1) mg/dL Result Diagrams: 12/18/20 05:10 12/18/20 05:10 Bac[place] Results Last 24 hrs: Microbiology 12/15/20 16:53 Aerobic Blood Culture - Preliminary Blood - Venous NO GROWTH AFTER 2 DAYS Anaerobic Blood Culture - Preliminary NO GROWTH AFTER 2 DAYS 12/15/20 17:00 Aerobic Blood Culture - Preliminary Blood - Venous - Lab Draw NO GROWTH AFTER 2 DAYS Anaerobic Blood Culture - Preliminary NO GROWTH AFTER 2 DAYS Sepsis Event Note - Focused Exam Vital Signs: Vital Signs Temp Pulse Resp BP Pulse Ox 12/18/20 11:34 35.9 C L 96 16 133/75 96 12/18/20 07:52 36.5 C 65 18 146/76 H 95 12/18/20 04:32 36.6 C 63 16 132/78 95 12/18/20 01:03 36.5 C 67 16 133/76 95 - Plan Plan:: I have seen and evaluated the patient and agree with the residents note unless specified in my note
[2020-12-17] MEDS ORDERED: Levofloxacin 750 MG Tab PO SCH (20:00)
[2020-12-17] MEDS: Morphine 15 MG Tab.ER PO PRN (21:20)
[2020-12-18 06:36] LABS: BLOOD UREA NITROGEN,BUN 7 mg/dL (7.0-18.0); CARBON DIOXIDE,CO2 25.3 mmol/L (21.0-32.0); CHLORIDE,CL 105 mmol/L (98-107); GLUCOSE RANDOM 105 mg/dL (74-106); POTASSIUM,K 4.3 mmol/L (3.5-5.1); SODIUM,NA 138 mmol/L (136-148)
[2020-12-18] MEDS: Morphine 15 MG Tab.ER PO PRN (09:27)
[2020-12-18] MEDS: Pantoprazole 40 MG in Sodium Chloride 0.9% 10 ML IV SCH (09:29)
[2020-12-18] MEDS ORDERED: Docusate Sodium 100 MG Cap PO ONE (11:46)
--- NOTE | 2020-12-18 16:57 | PCM.DCSUM1 ---
Discharge Summary - Hospital Course Free Text/Narrative:: 80-year-old male patient with past medical history of prostate cancer s/p prostatectomy 10yrs ago being treated with Xtandi, presents to the ED over concern of pneumonia from patient's primary care provider. Patient admitted for community-acquired pneumonia. Patient states visiting his primary care physician today in [place] for a preop authorization exam for Botox injection of the esophagus due to swallowing difficulties. At the time of his preop autho rization lab work was performed which revealed elevated white blood cell count, patient was then asked to have a chest x-ray performed at [facility] which per patient account was suspicious for pneumonia. Patient's primary care physician contacted the patient's oncologist who recommended patient visit emergency department for further evaluation due to elevated white blood cell count and chest x-ray findings. Patient states he feels fine, denies fever, chills, nausea, vomiting, headache, chest pain, shortness of breath. Patient denies any past cardiac or respiratory diseases, denies diabetes. ED course- blood cultures x2, vancomycin 1 g one-time. Chest x-ray impression- focal pulmonary opacity in the peripheral right lung base. White blood cell 30.4, hemoglobin 9.5, hematocrit 20.5, platelet 304, sodium 136, potassium 4.6, BUN 13, creatinine 1.3. Urinalysis negative Patient treated with vancomycin and Zosyn during admission and transition to oral Levaquin prior to discharge. Chest x-ray obtained 12-17-20 shows right lower lobe infiltrate persist but appears improved from previous x-ray dated 12-15-20 Per nursing correspondence patient is currently taking Jevtana chemotherapy last administered on December 10, as well as Neulasta which was last administered December 11. Patient's elevated white blood cell count likely secondary to Neulasta. Patient also takes prednisone as home medication. Patient has no clinical signs of respiratory infection including fever, chills, hypotension, tachycardia, shortness of breath. Patient to be discharged home in stable condition on Levaquin 750 mg X 4 days. Patient to follow-up with primary care physician and oncologist for any further medical concerns. - Discharge Data Discharge Date: 12/18/20 Discharge Disposition: Home, Self-Care 01 Condition: Stable - Referral to Home Health Primary Care Physician: Alejandra Ornelas MD - Discharge Diagnosis/Problem(s) (1) H/O prostatectomy SNOMED Code(s): 072132362, 808066999 ICD Code: Z90.79 - ACQUIRED ABSENCE OF OTHER GENITAL ORGAN(S) Status: Acute Current Visit: Yes (2) Prostate cancer SNOMED Code(s): 130473748 ICD Code: C61 - MALIGNANT NEOPLASM OF PROSTATE Status: Acute Current Visit: Yes (3) Pneumonia SNOMED Code(s): 458510594 ICD Code: J18.9 - PNEUMONIA, UNSPECIFIED ORGANISM Status: Acute Current Visit: Yes Qualifiers: Pneumonia type: due to unspecified organism Laterality: right Lung loc ation: lower lobe of lung Qualified Code(s): J18.9 - Pneumonia, unspecified organism - Patient Instructions Diet: Usual Diet as Tolerated Activity: As Tolerated Notify Provider of: Fever, Increased Pain, Nausea and/or Vomiting Other/Special Instructions: Patient to report to ER if experiencing any symptoms of fever, chills, nausea, vomiting, chest pain, shortness of breath. Patient to follow-up with PCP and oncologist for further evaluation and treatment. - Discharge Plan Prescriptions/Med Rec: levoFLOXacin [Levaquin] 750 mg PO Q24H 4 Days #4 tablet polyethylene glycoL 3350 [MiraLAX] 17 gm PO BEDTIME #7 packet Home Medications: Home Meds guaiFENesin [Mucinex] 600 mg PO BEDTIME PRN 01/03/20 [History] Morphine Sulfate 15 mg PO Q8H PRN 12/16/20 [History] Morphine Sulfate [Morphine Sulfate ER] 15 mg PO Q12H PRN 12/16/20 [History] Pantoprazole [ProTONIX] 40 mg PO BID 12/16/20 [History] predniSONE [Prednisone] 10 mg PO DAILY 12/16/20 [History] traMADol HCl [Tramadol HCl] 100 mg PO Q6HR PRN 12/16/20 [History] levoFLOXacin [Levaquin] 750 mg PO Q24H 4 Days #4 tablet 12/18/20 [Rx] polyethylene glycoL 3350 [MiraLAX] 17 gm PO BEDTIME #7 packet 12/18/20 [Rx] Patient Handouts: Levofloxacin tablets, Community-Acquired Pneumonia, Adult, Polyethylene Glycol Powder for Oral Solution Forms: ED Department Discharge Referrals: Alejandra Ornelas MD [Primary Care Provider] - 12/24/20 1:00 pm - Discharge Summary/Plan Comment DC Time >30 min.: Yes Total # of Minutes for Discharge Time: 40 - General Info Date of Service: 12/18/20 - Review of Systems General: Denies: Fever, Chills Pulmonary: Denies: Shortness of Breath, Pleuritic Chest Pain, Cough, Sputum, Wheezing Cardiovascular: Denies: Chest Pain, Palpitations, Orthopnea, Edema Gastrointestinal: Denies: Abdominal Pain, Decreased Appetite, Nausea, Vomiting Neurological: Denies: Confusion, Dizziness, Headache Psychiatric: Denies: Confusion - Patient Data Vitals - Most Recent: Last Vital Signs Temp 96.7 F L 12/18/20 11:34 Pulse 67 12/18/20 11:34 Resp 16 12/18/20 11:34 BP 133/75 12/18/20 11:34 Pulse Ox 96 12/18/20 11:34 Weight - Most Recent: 206 lb I&O - Last 24 hours: Intake & Output 12/18/20 12/18/20 12/18/20 06:59 14:59 22:59 Intake Total 550 210 Output Total 710 Balance -160 210 Lab Results - Last 24 hrs: Laboratory Results - last 24 hr 12/18/20 12/18/20 12/18/20 Range/Units 05:10 05:10 11:50 WBC 21.02 H (4.0-11.0) K/uL RBC 3.44 L (4.50-5.90) M/uL Hgb 9.7 L (13.0-17.0) g/dL Hct 31.2 L (38.0-50.0) % MCV 90.7 (80.0-98.0) fL MCH 28.2 (27.0-32.0) pg MCHC 31.1 (31.0-37.0) g/dL RDW Std Deviation 63.5 H (28.0-62.0) fl RDW Coeff of Oscar 20 H (11.0-15.0) % Plt Count 292 (150-400) K/uL MPV 8.40 (7.40-12.00) fL Add Manual Diff YES Neutrophils % (Manual) 71 (48.0-80.0) % Band Neutrophils % 12 % Lymphocytes % (Manual) 3 L (16.0-40.0) % Monocytes % (Manual) 7 (0.0-15.0) % Eosinophils % (Manual) 3 (0.0-7.0) % Metamyelocytes % 2 % Myelocytes % 2 % Absolute Seg Neuts 14.9 H (1.4-5.7) Band Neutrophils # 2.5 Lymphocytes # (Manual) 0.6 (0.6-2.4) Monocytes # (Manual) 1.5 H (0.0-0.8) Eosinophils # (Manual) 0.6 (0.0-0.7) Absolute Metamyelocyte 0.4 Absolute Myelocytes 0.4 Sodium 138 (136-148) mmol/L Potassium 4.3 (3.5-5.1) mmol/L Chloride 105 (98-107) mmol/L Carbon Dioxide 25.3 (21.0-32.0) mmol/L BUN 7 (7.0-18.0) mg/dL Creatinine 1.0 (0.8-1.3) mg/dL Est Cr Clr Drug Dosing 59.82 mL/min Estimated GFR (MDRD) > 60.0 ml/min Glucose 105 (74-106) mg/dL Calcium 7.9 L (8.5-10.1) mg/dL Vancomycin Trough 10.3 H (5.0-10.0) ug/mL MARGAUX Results - Last 24 hrs: Microbiology 12/15/20 16:53 Aerobic Blood Culture - Preliminary Blood - Venous NO GROWTH AFTER 2 DAYS Anaerobic Blood Culture - Preliminary NO GROWTH AFTER 2 DAYS 12/15/20 17:00 Aerobic Blood Culture - Preliminary Blood - Venous - Lab Draw NO GROWTH AFTER 2 DAYS Anaerobic Blood Culture - Preliminary NO GROWTH AFTER 2 DAYS Med Orders - Current: Current Medications Acetaminophen (Acetaminophen 325 Mg Tab) 650 mg PO Q4H PRN PRN Reason: Pain (Mild 1-3)/fever Albuterol/Ipratropium (Albuterol/Ipratropium 3.0-0.5 Mg/3 Ml Neb Soln) 3 ml NEB Q4HRRT PRN PRN Reason: Shortness Of Breath/wheezing Guaifenesin (Guaifenesin 600 Mg Tab.Er) 600 mg PO BEDTIME PRN PRN Reason: Congestion Pantoprazole Sodium 40 mg/ (Sodium Chloride) 10 mls @ 300 mls/hr IV DAILY [facility] Last Admin: 12/18/20 09:29 Dose: 300 mls/hr Documented by: Levofloxacin (Levofloxacin 750 Mg Tab) 750 mg PO Q24H [facility] Last Admin: 12/17/20 19:45 Dose: 750 mg Documented by: Morphine Sulfate (Morphine 15 Mg Tab) 15 mg PO Q8H PRN PRN Reason: Pain Last Admin: 12/17/20 18:10 Dose: 15 mg Documented by: Morphine Sulfate (Morphine 15 Mg Tab.Er) 15 mg PO Q12H PRN PRN Reason: Pain Last Admin: 12/18/20 09:27 Dose: 15 mg Documented by: Discontinued Medications Docusate Sodium (Docusate Sodium 100 Mg Cap) 100 mg PO ONETIME ONE Stop: 12/18/20 11:47 Vancomycin HCl 1 gm/ Sodium (Chloride) 250 mls @ 166 mls/hr IV ONETIME ONE Stop: 12/15/20 19:33 Last Admin: 12/15/20 18:22 Dose: 166 mls/hr Documented by: Piperacillin Sod/Tazobactam (Sod 4.5 gm/ Sodium Chloride) 100 mls @ 100 mls/hr IV Q8H [facility] Last Admin: 12/15/20 23:26 Dose: Not Given Documented by: Vancomycin HCl 1.5 gm/ Premix 300 mls @ 200 mls/hr IV Q24H [facility] Last Admin: 12/17/20 12:00 Dose: 200 mls/hr Documented by: Piperacillin Sod/Tazobactam (Sod 3.375 gm/ Sodium Chloride) 50 mls @ 100 mls/hr IV Q8H [facility] Last Admin: 12/17/20 11:07 Dose: 100 mls/hr Documented by: Lactated Ringer's (Ringers, Lactated) 1,000 mls @ 999 mls/hr IV ONETIME ONE Stop: 12/15/20 23:33 Last Admin: 12/15/20 23:32 Dose: 999 mls/hr Documented by: Morphine Sulfate (Morphine 2 Mg/Ml Syringe) 1 mg IVPUSH Q4H PRN PRN Reason: Pain Non-Formulary Medication (Enzalutamide [Xtandi]) 160 mg PO DAILY [facility] Tramadol HCl (Tramadol 50 Mg Tab) 50 mg PO Q4HR PRN PRN Reason: Pain Vancomycin HCl (Pharmacy To Dose - Vancomycin) 1 dose .XX ASDIRECTED IGNACIO - Exam General: Reports: Alert Lungs: Reports: Normal Respiratory Effort Cardiovascular: Reports: Regular Rate, Regular Rhythm GI/Abdominal Exam: Soft, Non-Tender Psy/Mental Status: Reports: Alert
== END 2020-12-18 12:55 | disposition home or self-care (01) ==
LOC: MW.ED 16:14 → MW.MS 18:01
PROVIDERS: ADMIT Student in an Organized Health Care Education/Training Program; ATTEND Student in an Organized Health Care Education/Training Program
DX: J18.9 Pneumonia, unspecified organism (principal); Z79.899 Other long term (current) drug therapy; Z98.890 Other specified postprocedural states; Z20.822 Contact with and (suspected) exposure to COVID-19
CPT/HCPCS: 36415; 71045; 71045-26; 80048; 80053; 80202; 81003; 83605; 85025; 87040; 96365; 96366; 96367; 96375; 96376; 99284-25; A9270-GY; C9113; G0378; J2543; J3370; J7050; J7120; U0002

== ENCOUNTER 2021-04-22 11:26 | Emergency (ER) | payer MEDICARE, OTHER ==
[2021-04-22] MEDS ORDERED: Sodium Chloride 0.9% 10 ML Syringe FLUSH PRN (11:46)
[2021-04-22] MEDS ORDERED: Sodium Chloride 0.9% 2.5 ML Syringe FLUSH PRN (11:46)
[2021-04-22 12:53] LABS: BLOOD UREA NITROGEN,BUN 14 mg/dL (7.0-18.0); CARBON DIOXIDE,CO2 21.9 mmol/L (21.0-32.0); CHLORIDE,CL 99 mmol/L (98-107); GLUCOSE RANDOM 175 mg/dL (74-106); POTASSIUM,K 4.1 mmol/L (3.5-5.1); SODIUM,NA 134 mmol/L (136-148)
[2021-04-22 13:01] LABS: CORONAVIRUS COVID-19 NAA NEGATIVE (NEGATIVE); INFLUENZA A NAA NEGATIVE (NEGATIVE); INFLUENZA B NAA NEGATIVE (NEGATIVE)
== END 2021-04-22 13:51 | disposition home or self-care (01) ==
LOC: MW.ED 11:26
DX: R53.1 Weakness (principal); E78.00 Pure hypercholesterolemia, unspecified; Z79.899 Other long term (current) drug therapy; Z20.822 Contact with and (suspected) exposure to COVID-19
CPT/HCPCS: 0240U; 36415; 71045; 80053; 81001; 83735; 84439; 84443; 84484; 85025; 93005; 99285

== ENCOUNTER 2021-06-28 12:37 | Emergency (ER) | payer MEDICARE, OTHER ==
[2021-06-28] MEDS ORDERED: Sodium Chloride 0.9% 10 ML Syringe FLUSH PRN (15:52)
[2021-06-28] MEDS ORDERED: Sodium Chloride 0.9% 2.5 ML Syringe FLUSH PRN (15:52)
[2021-06-28] MEDS ORDERED: Ondansetron 4 MG/2 ML SDV IVPUSH ONE (16:26)
[2021-06-28 16:27] LABS: BLOOD UREA NITROGEN,BUN 11 mg/dL (7.0-18.0); CARBON DIOXIDE,CO2 20.2 mmol/L (21.0-32.0); CHLORIDE,CL 100 mmol/L (98-107); GLUCOSE RANDOM 132 mg/dL (74-106); LIPASE 32 U/L (73-393); POTASSIUM,K 4.1 mmol/L (3.5-5.1); SODIUM,NA 135 mmol/L (136-148)
[2021-06-28] MEDS ORDERED: Sodium Chloride 0.9% 1,000 ML IV ONE (16:32)
[2021-06-28 16:52] LABS: CORONAVIRUS COVID-19 NAA NEGATIVE (NEGATIVE); INFLUENZA A NAA NEGATIVE (NEGATIVE); INFLUENZA B NAA NEGATIVE (NEGATIVE)
[2021-06-28] MEDS ORDERED: Iopamidol 755 MG/ML 500 ML Multipack Bottle IVPUSH STA (17:22)
== END 2021-06-28 20:45 | disposition home or self-care (01) ==
LOC: MW.ED 12:37
DX: C79.51 Secondary malignant neoplasm of bone (principal); C61 Malignant neoplasm of prostate; K22.89 Other specified disease of esophagus; E86.0 Dehydration; E78.00 Pure hypercholesterolemia, unspecified; Z20.822 Contact with and (suspected) exposure to COVID-19; Z79.899 Other long term (current) drug therapy
CPT/HCPCS: 0240U; 36415; 74177; 80053; 81003; 83690; 84484; 85025; 93005; 96374; 99284; J2405; J3490; J7030; Q9967; 93010

== ENCOUNTER 2021-06-30 10:10 | Inpatient (IN) | payer MEDICARE, OTHER ==
[2021-06-30] MEDS ORDERED: Sodium Chloride 0.9% 10 ML Syringe FLUSH PRN ×2 (10:12→12:43)
[2021-06-30] MEDS ORDERED: Sodium Chloride 0.9% 2.5 ML Syringe FLUSH PRN ×2 (10:12→12:43)
[2021-06-30] MEDS ORDERED: Sodium Chloride 0.9% 1,000 ML IV ONE ×2 (10:12→11:30)
[2021-06-30 11:10] LABS: CORONAVIRUS COVID-19 NAA NEGATIVE (NEGATIVE); INFLUENZA A NAA NEGATIVE (NEGATIVE); INFLUENZA B NAA NEGATIVE (NEGATIVE)
[2021-06-30 11:31] LABS: BLOOD UREA NITROGEN,BUN 6 mg/dL (7.0-18.0); CARBON DIOXIDE,CO2 19.6 mmol/L (21.0-32.0); CHLORIDE,CL 105 mmol/L (98-107); GLUCOSE RANDOM 105 mg/dL (74-106); LIPASE 24 U/L (73-393); POTASSIUM,K 3.4 mmol/L (3.5-5.1); SODIUM,NA 138 mmol/L (136-148)
[2021-06-30] MEDS ORDERED: Morphine 2 MG/ML SYRINGE IVPUSH ONE (11:31)
[2021-06-30] MEDS ORDERED: Acetaminophen 325 MG Tab PO PRN (12:43)
[2021-06-30] MEDS ORDERED: Bisacodyl 10 MG Supp RECTAL ONE (12:43)
[2021-06-30] MEDS ORDERED: Bisacodyl 10 MG Supp RECTAL PRN ×2 (12:43→14:49)
[2021-06-30] MEDS ORDERED: Docusate Sodium 100 MG Cap PO SCH (12:45)
[2021-06-30] MEDS: Docusate Sodium 100 MG Cap PO SCH ×2 (15:03→20:12)
[2021-06-30] MEDS: Pantoprazole 40 MG in Sodium Chloride 0.9% 10 ML IVPUSH SCH ×2 (15:03→20:12)
[2021-06-30] MEDS: Ondansetron 4 MG/2 ML SDV IVPUSH PRN ×2 (15:06→21:07)
[2021-06-30] MEDS: Lactated Ringers 1,000 ML IV SCH ×2 (20:01→23:18)
[2021-06-30] MEDS: Morphine 15 MG Tab.ER PO SCH (20:11)
[2021-06-30] MEDS: Gabapentin 300 MG Cap PO SCH (20:12)
[2021-07-01 05:59] LABS: BLOOD UREA NITROGEN,BUN 4 mg/dL (7.0-18.0); CARBON DIOXIDE,CO2 23.5 mmol/L (21.0-32.0); CHLORIDE,CL 106 mmol/L (98-107); GLUCOSE RANDOM 77 mg/dL (74-106); POTASSIUM,K 2.9 mmol/L (3.5-5.1); SODIUM,NA 138 mmol/L (136-148)
[2021-07-01] MEDS: Pantoprazole 40 MG in Sodium Chloride 0.9% 10 ML IVPUSH SCH ×2 (09:39→20:20)
[2021-07-01] MEDS: Morphine 15 MG Tab.ER PO SCH ×2 (09:40→20:19)
[2021-07-01] MEDS ORDERED: Potassium Phosphates 30 MMOLE in Sodium Chloride 0.9% 500 ML IV ONE (09:40)
[2021-07-01] MEDS: Docusate Sodium 100 MG Cap PO SCH ×2 (09:41→20:20)
[2021-07-01] MEDS: Gabapentin 300 MG Cap PO SCH ×2 (09:41→20:20)
[2021-07-01] MEDS: Lactated Ringers 1,000 ML IV SCH ×2 (09:43→20:19)
[2021-07-01] MEDS: Ondansetron 4 MG/2 ML SDV IVPUSH PRN ×2 (10:33→20:21)
[2021-07-01] MEDS ORDERED: Promethazine 25 MG/ML SDV IM PRN (10:49)
[2021-07-02] MEDS: Lactated Ringers 1,000 ML IV SCH ×2 (04:10→17:06)
[2021-07-02 06:14] LABS: BLOOD UREA NITROGEN,BUN 5 mg/dL (7.0-18.0); CHLORIDE,CL 104 mmol/L (98-107); GLUCOSE RANDOM 89 mg/dL (74-106); POTASSIUM,K 2.9 mmol/L (3.5-5.1); SODIUM,NA 138 mmol/L (136-148)
[2021-07-02] MEDS: Morphine 15 MG Tab.ER PO SCH ×2 (08:27→21:08)
[2021-07-02] MEDS: Pantoprazole 40 MG in Sodium Chloride 0.9% 10 ML IVPUSH SCH ×2 (08:28→21:06)
[2021-07-02] MEDS: Gabapentin 300 MG Cap PO SCH ×2 (08:28→21:08)
[2021-07-02] MEDS: Docusate Sodium 100 MG Cap PO SCH ×2 (08:28→21:07)
[2021-07-02] MEDS: Ondansetron 4 MG/2 ML SDV IVPUSH PRN ×2 (08:28→21:20)
[2021-07-02] MEDS ORDERED: Polyethylene Glycol 3350 Powder 17 GM Packet PO PRN (12:00)
[2021-07-02] MEDS ORDERED: Magnesium Sulfate/Water 2 GM in Premix Bag 1 BAG IV ONE ×2 (12:00→14:00)
[2021-07-02] MEDS ORDERED: Sodium Chloride 0.9% with KCl 1,000 ML IV ONE (12:00)
[2021-07-02] MEDS: Polyethylene Glycol 3350 Powder 17 GM Packet PO SCH ×2 (13:08→21:06)
[2021-07-02] MEDS: Metoclopramide 5 MG Tab PO SCH (17:04)
[2021-07-03] MEDS: Lactated Ringers 1,000 ML IV SCH ×3 (03:46→19:27)
[2021-07-03] MEDS: Polyethylene Glycol 3350 Powder 17 GM Packet PO SCH ×3 (03:48→21:11)
[2021-07-03] MEDS: Metoclopramide 5 MG Tab PO SCH ×3 (06:29→17:20)
[2021-07-03 07:14] LABS: BLOOD UREA NITROGEN,BUN 4 mg/dL (7.0-18.0); CARBON DIOXIDE,CO2 22.9 mmol/L (21.0-32.0); CHLORIDE,CL 105 mmol/L (98-107); GLUCOSE RANDOM 92 mg/dL (74-106); POTASSIUM,K 3.6 mmol/L (3.5-5.1); SODIUM,NA 136 mmol/L (136-148)
[2021-07-03] MEDS: Pantoprazole 40 MG in Sodium Chloride 0.9% 10 ML IVPUSH SCH ×2 (09:08→21:09)
[2021-07-03] MEDS: Morphine 15 MG Tab.ER PO SCH ×2 (09:14→21:09)
[2021-07-03] MEDS: Docusate Sodium 100 MG Cap PO SCH ×2 (09:15→21:11)
[2021-07-03] MEDS: Gabapentin 300 MG Cap PO SCH ×2 (09:15→21:09)
[2021-07-03] MEDS ORDERED: DEXTROSE IV ONE ×2 (12:00)
[2021-07-03] MEDS ORDERED: WATER IV ONE ×2 (12:00)
[2021-07-03] MEDS ORDERED: SODIUM PHOSPHATE IV ONE ×2 (12:00)
[2021-07-04] MEDS: Lactated Ringers 1,000 ML IV SCH (04:13)
[2021-07-04] MEDS: Polyethylene Glycol 3350 Powder 17 GM Packet PO SCH ×2 (06:50→11:43)
[2021-07-04 07:05] LABS: BLOOD UREA NITROGEN,BUN 4 mg/dL (7.0-18.0); CARBON DIOXIDE,CO2 22.7 mmol/L (21.0-32.0); CHLORIDE,CL 105 mmol/L (98-107); GLUCOSE RANDOM 84 mg/dL (74-106); POTASSIUM,K 3.4 mmol/L (3.5-5.1); SODIUM,NA 137 mmol/L (136-148)
[2021-07-04] MEDS: Pantoprazole 40 MG in Sodium Chloride 0.9% 10 ML IVPUSH SCH (08:03)
[2021-07-04] MEDS: Docusate Sodium 100 MG Cap PO SCH (08:03)
[2021-07-04] MEDS: Gabapentin 300 MG Cap PO SCH (08:03)
[2021-07-04] MEDS: Morphine 15 MG Tab.ER PO SCH (08:03)
[2021-07-04] MEDS: Metoclopramide 5 MG Tab PO SCH ×2 (08:04→11:41)
[2021-07-04] MEDS ORDERED: Magnesium Oxide 400 MG Tab PO ONE (10:55)
[2021-07-04] MEDS ORDERED: DEXTROSE IV ONE ×2 (11:45)
[2021-07-04] MEDS ORDERED: WATER IV ONE ×2 (11:45)
[2021-07-04] MEDS ORDERED: POTASSIUM PHOSPHATES IV ONE ×2 (11:45)
[2021-07-04] MEDS ORDERED: Phosphorus #1 250 MG Tab PO ONE (13:05)
== END 2021-07-04 15:45 | disposition home or self-care (01) | DRG 812 ==
LOC: MW.ED 10:10 → MW.MS 11:50
PROVIDERS: ADMIT Internal Medicine; ATTEND Internal Medicine
PROC: 30233N1 Transfusion of Nonautologous Red Blood Cells into Peripheral Vein, Percutaneous Approach (ICD-10-PCS; principal; 2021-06-30)
DX: D64.9 Anemia, unspecified (principal); R53.1 Weakness; C79.51 Secondary malignant neoplasm of bone; E46 Unspecified protein-calorie malnutrition; K59.03 Drug induced constipation; R63.0 Anorexia; C61 Malignant neoplasm of prostate; K22.4 Dyskinesia of esophagus; R94.31 Abnormal electrocardiogram [ECG] [EKG]; E83.42 Hypomagnesemia; E87.6 Hypokalemia; H54.7 Unspecified visual loss; E78.00 Pure hypercholesterolemia, unspecified; G62.9 Polyneuropathy, unspecified; T40.2X5A Adverse effect of other opioids, initial encounter; Z20.822 Contact with and (suspected) exposure to COVID-19; Z90.89 Acquired absence of other organs; Z79.899 Other long term (current) drug therapy; Z87.01 Personal history of pneumonia (recurrent); Z98.890 Other specified postprocedural states; Z98.49 Cataract extraction status, unspecified eye; Z68.21 Body mass index [BMI] 21.0-21.9, adult
CPT/HCPCS: 0240U; 36415; 36430; 71045; 80048; 80053; 83690; 83735; 84100; 84484; 85014; 85018; 85025; 86850; 86900; 86901; 86920; 93005; 96374; 99285; 99222; 99232; 99233; 99238; 99284; A9270-GY; C9113; J2270; J2405; J2550; J3475; J3480; J3490; J7030; J7040; J7060; J7120; P9016